=== PATIENT | female | born 1955 | race Caucasian/White ===

== ENCOUNTER → 2016-09-06 | Outpatient (CLI) | payer BC ==
[~2016-09-06] MED LIST: ASPEC81 PO; ATOR-22 PO; BRL90 PO; DAPA1TAB5 PO; LIRA18IN SQ; LOSA100T65 PO; METO50TA17 PO; PREG1CAP70 PO; PROP80CA PO
--- NOTE | 2016-09-07 13:29 | MAMMOGRAPHY REPORT ---
BILATERAL DIGITAL SCREENING MAMMOGRAM TOMOSYNTHESIS WITH CAD: 09/06/2016 CLINICAL HISTORY: Routine screening examination. TECHNIQUE: Breast tomosynthesis in addition to standard 2D mammography was performed. Current study was also evaluated with a Computer Aided Detection (CAD) system. COMPARISON: Comparison is made to exams dated: 09/02/2015 mammogram, 08/21/2013 mammogram, 08/04/2012 mammogram, 07/30/2009 mammogram, 08/03/2010 mammogram, and 08/04/2011 mammogram - [facility]. BREAST COMPOSITION: The tissue of both breasts is extremely dense, which lowers the sensitivity of mammography. FINDINGS: The breast bregma pattern is similar to prior available mammograms. There are scattered s table benign-appearing round and punctate microcalcifications throughout each breast. No new suspic ious mass, architectural distortion or cluster of microcalcifications is seen. IMPRESSION: ACR BI-RADS CATEGORY 1: NEGATIVE There is no mammographic evidence of malignancy. A 1 year screening mammogram is recommended. The p atient will receive written notification of the results. Approximately 10% of breast cancers are not detected with mammography. A negative mammographic repor t should not delay biopsy if a clinically suggestive mass is present. Ciara Sewell M.D. ay/:09/06/2016 16:57:39 Food Stylist: Donna TREJO)(Wandy), [facility] letter sent: Normal 1/2 BI-RADS Code: ACR BI-RADS Category 1: Negative
== END | disposition home or self-care (01) ==
LOC: C.MAMM 14:16
PROVIDERS: ATTEND Obstetrics & Gynecology
DX: Z12.31 Encounter for screening mammogram for malignant neoplasm of breast (principal)

== ENCOUNTER → 2016-12-06 | Outpatient (CLI) | payer BC ==
[2016-12-06 17:23] LABS: MEAN CELL VOLUME 95.3 fL (80-100); MEAN CORPUSCULAR HEMOGLOBIN 30.7 pg (25-34); MEAN CORPUSCULAR HGB CONC 32.2 g/dl (32-36); MEAN PLATELET VOLUME 12.1 fL (7.4-10.4); PLATELET COUNT 219 K/uL (130-400); WHITE BLOOD COUNT 5.57 K/uL (4.8-10.8)
[2016-12-06 17:43] LABS: ALT/SGPT 45 U/L (12-78); AST/SGOT 37 U/L (15-37); BLOOD UREA NITROGEN 18 mg/dl (7-18); BUN/CREATININE RATIO 14.8 (10-20); CALCIUM 9.1 mg/dl (8.5-10.1); CARBON DIOXIDE 25 mmol/L (21-32); CHLORIDE 104 mmol/L (98-107); GLUCOSE 136 mg/dl (70-99); SODIUM 140 mmol/L (136-145)
[2016-12-06 17:46] LABS: ALB/GLOB RATIO 1.1 (0.9-2); ALKALINE PHOSPHATASE 68 U/L (45-117); CHOLESTEROL 184 mg/dl (0-200); CHOLESTEROL/HDL RATIO 4.2; HDL CHOLESTEROL 44 mg/dl; TRIGLYCERIDES 507 mg/dl (0-150)
[2016-12-06 18:17] LABS: BASO % 0.9 %; BASO ABS # 0.05 K/uL (0-0.2); COMPLETE YES; EOS % 1.6 %; IG% 0.2 %; LYMPH % 55.5 %; LYMPH ABS # 3.09 K/uL (1.2-3.4); MONO % 8.3 %; NEUT % 33.5 %
[2016-12-07 06:10] LABS: ESTIMATED AVERAGE GLUCOSE 151 mg/dl; HA1C FLAG Normal (Normal)
== END | disposition home or self-care (01) ==
LOC: C.LABBFT 12:08
PROVIDERS: ATTEND Internal Medicine
DX: I10 Essential (primary) hypertension (principal); E11.9 Type 2 diabetes mellitus without complications; E78.5 Hyperlipidemia, unspecified; D64.9 Anemia, unspecified

== ENCOUNTER → 2017-05-02 | Outpatient (CLI) | payer BC ==
--- NOTE | 2017-05-02 14:18 | DIAGNOSTIC IMAGING REPORT ---
(CHEST) THORAX WITHOUT CT DOSE: 220.13 mGycm HISTORY: Lung nodules R07.89, Z12.2 TECHNIQUE: Multiaxial CT images of the chest were performed without contrast. A dose lowering technique was utilized adhering to the principles of ALARA. COMPARISON: 06/01/2016 FINDINGS: The nodularity right pulmonary apex and right upper lung has resolved. This presumably were postinflammatory. At this time lungs are considered clear. No focal infiltrate. No new or interval finding is not noted. Lung bases are considered clear. Minimal dependent basilar atelectasis. No significant mediastinal or hilar adenopathy. IMPRESSION: 1. Improved exam. 2. Pulmonary nodularity appears described has resolved. 3. the study at this time is considered negative. No additional follow-up is required. The above report was generated using voice recognition software. It may contain grammatical, syntax or spelling errors. Electronically signed by: Yoni Jj M.D. 05/02/2017 2:17 PM Dictated Date/Time: 05/02/2017 2:13 PM
== END | disposition home or self-care (01) ==
LOC: C.CTS 13:50
PROVIDERS: ATTEND Internal Medicine
DX: Z12.2 Encounter for screening for malignant neoplasm of respiratory organs (principal); R07.89 Other chest pain

== ENCOUNTER → 2017-07-13 | Outpatient (CLI) | payer BC ==
[2017-07-13 09:43] LABS: ESTIMATED AVERAGE GLUCOSE 169 mg/dl; HA1C FLAG Normal (Normal)
[2017-07-13 10:18] LABS: CHOLESTEROL/HDL RATIO 4.4; THYROID STIMULATING HORMONE 2.53 uIu/ml (0.300-4.500)
[2017-07-13 10:40] LABS: RATIO 6.6 mcg/mg (0-30.0)
== END | disposition home or self-care (01) ==
LOC: C.LAB1850 07:44
PROVIDERS: ATTEND Physician Assistant Medical
DX: E11.9 Type 2 diabetes mellitus without complications (principal); E78.5 Hyperlipidemia, unspecified; I25.10 Atherosclerotic heart disease of native coronary artery without angina pectoris

== ENCOUNTER → 2017-08-09 | Outpatient (CLI) | payer BC ==
[~2017-08-09] MED LIST changes: -ASPEC81 PO; +ASPI-320 PO; +ATOR-26 PO; +METO50TA8 PO; +MULT-506 PO
--- NOTE | 2017-08-09 14:26 | DIAGNOSTIC IMAGING REPORT ---
THORACIC SPINE 3 VIEWS ROUTINE CLINICAL HISTORY: M54.9 Back [id number] COMPARISON STUDY: No previous studies for comparison. FINDINGS: There is a minor spinal curvature. There are multilevel degenerative changes with anterior posterior osteophytic spurring. No acute fractures or traumatic subluxations are visualized. IMPRESSION: 1. No acute fractures or traumatic subluxations 2. No destructive lesions are visualized on conventional radiographic imaging 3. Mild to moderate multilevel degenerative change Electronically signed by: Cl Flores M.D. 08/09/2017 2:25 PM Dictated Date/Time: 08/09/2017 2:24 PM
== END | disposition home or self-care (01) ==
LOC: C.RAD1850 14:13
PROVIDERS: ATTEND Internal Medicine
DX: M54.9 Dorsalgia, unspecified (principal)

== ENCOUNTER → 2017-08-16 | Outpatient (CLI) | payer BC ==
[~2017-08-16] MED LIST changes: +ASPEC81 PO; -ASPI-320 PO; -ATOR-26 PO; -METO50TA8 PO; -MULT-506 PO
[2017-08-16 12:55] LABS: BLOOD UREA NITROGEN 22 mg/dl (7-18); CREATININE 1.09 mg/dl (0.60-1.20)
== END | disposition home or self-care (01) ==
LOC: C.LABBFT 09:10
PROVIDERS: ATTEND Internal Medicine
DX: E11.9 Type 2 diabetes mellitus without complications (principal); M54.9 Dorsalgia, unspecified

== ENCOUNTER → 2017-08-18 | Outpatient (CLI) | payer BC ==
[~2017-08-18] MED LIST changes: +GADAVIST IV PRN
--- NOTE | 2017-08-18 10:01 | DIAGNOSTIC IMAGING REPORT ---
THORACIC SPINE MRI WITH AND WITHOUT CONTRAST HISTORY: M54.9 Back painM19.90 DJD (degenerative joint disease)[id number] TECHNIQUE: Multiplanar multisequence MRI of the thoracic spine was performed both before and after the intravenous administration of contrast. COMPARISON: Thoracic spine radiograph 08/09/2017. FINDINGS: No fractures or subluxation within the thoracic spine. Normal signal intensity seen throughout the visualized osseous structures. The thoracic spinal cord demonstrate a normal signal intensity. No epidural masses or fluid collections. Mild flattening/thinning of the thoracic spinal cord from the T5-T6 level. This is of doubtful clinical significance. Tiny broad-based posterior disc bulge at T8-T9. No significant central canal narrowing. No neural foraminal narrowing. At the T11-T12 level there is a focal osteophyte at the right facet which abuts the spinal cord. However, there is no significant cord deformity. Paraspinal soft tissues are unremarkable. Mild disc space narrowing throughout the majority of the thoracic spine. IMPRESSION: 1. No fractures or subluxation within the thoracic spine. 2. Mild disc space narrowing throughout the majority of the thoracic spine. However, no significant central canal or neural foraminal narrowing. 3. The thoracic spinal cord demonstrates a normal signal intensity. 4. Small osteophyte protruding from the right T11-12 facet into the central canal which abuts but does not deform the distal thoracic spinal cord. Electronically signed by: Solomon Luna M.D. 08/18/2017 10:00 AM Dictated Date/Time: 08/18/2017 9:49 AM
== END | disposition home or self-care (01) ==
LOC: C.MRI 08:38
PROVIDERS: ATTEND Internal Medicine
DX: M25.78 Osteophyte, vertebrae (principal); M19.90 Unspecified osteoarthritis, unspecified site; M54.9 Dorsalgia, unspecified

== ENCOUNTER → 2017-09-08 | Outpatient (CLI) | payer BC ==
[~2017-09-08] MED LIST changes: -GADAVIST IV PRN
--- NOTE | 2017-09-12 07:38 | MAMMOGRAPHY REPORT ---
BILATERAL DIGITAL SCREENING MAMMOGRAM TOMOSYNTHESIS WITH CAD: 09/08/2017 CLINICAL HISTORY: Routine screening. Patient has no complaints. TECHNIQUE: Breast tomosynthesis in addition to standard 2D mammography was performed. Current study was also evaluated with a Computer Aided Detection (CAD) system. COMPARISON: Comparison is made to exams dated: 09/06/2016 mammogram, 09/02/2015 mammogram, 08/28/2014 m ammogram, 08/21/2013 mammogram, 08/04/2012 mammogram, and 08/04/2011 mammogram - [facility]. BREAST COMPOSITION: The tissue of both breasts is extremely dense, which lowers the sensitivity of m ammography. FINDINGS: There is a possible small cluster of calcifications within the left superior breast at jessica roximately 11:30 to 12:00, for which spot magnification views are recommended for further evaluation. Additionally, there is possible architectural distortion within the left medial posterior breast se en on the cc view only, which may represent the patient's normal parenchymal pattern, however, spot c ompression tomosynthesis views and possible breast ultrasound are recommended for further evaluation. The remainder of both breasts are stable compared to prior exams, without suspicious masses, calcific ations, or areas of architectural distortion noted. Other scattered bilateral benign-appearing calci fications are not significantly changed. Bilateral asymmetries are stable. IMPRESSION: ACR BI-RADS CATEGORY 0: INCOMPLETE EVALUATION: NEED ADDITIONAL IMAGING EVALUATION Left breast calcifications and questionable architectural distortion, for which additional imaging ev aluation is recommended. The patient will be called to schedule an appointment. Approximately 10% of breast cancers are not detected with mammography. A negative mammographic report should not delay biopsy if a clinically suggestive mass is present. Barbi El M.D. /:09/08/2017 16:08:25 Envelope Press Operator: Imani Wagoner, [facility] letter sent: Addl Imaging 0 BI-RADS Code: ACR BI-RADS Category 0: Incomplete Evaluation: Need Additional Imaging Evaluation
== END | disposition home or self-care (01) ==
LOC: C.MAMM 14:49
PROVIDERS: ATTEND Obstetrics & Gynecology
DX: Z12.31 Encounter for screening mammogram for malignant neoplasm of breast (principal); R92.1 Mammographic calcification found on diagnostic imaging of breast

== ENCOUNTER → 2017-09-20 | Outpatient (CLI) | payer BC ==
--- NOTE | 2017-09-21 15:25 | MAMMOGRAPHY REPORT ---
UNILATERAL LEFT DIGITAL DIAGNOSTIC MAMMOGRAM TOMOSYNTHESIS AND TARGETED LEFT ULTRASOUND: 09/20/2017 CLINICAL HISTORY: 62-year-old woman called back from screening mammography for a possible area of arc hitectural distortion in the medial posterior left breast, and a possible new grouping of microcalcif ications in the left breast. Family history of breast cancer = mother. TECHNIQUE: Spot magnification left CC, ML; spot compression tomosynthesis left CC and MLO views were obtained. COMPARISON: Comparison is made to exams dated: 09/08/2017 mammogram, 09/06/2016 mammogram, 09/02/2015 ma mmogram, 08/28/2014 mammogram, 08/21/2013 mammogram, and 08/04/2012 mammogram - [facility] enter. BREAST COMPOSITION: The tissue of the left breast is heterogeneously dense, which may obscure small masses. FINDINGS: The spot magnification views of the left breast demonstrate a small, 3 mm cluster of amorp hous microcalcifications in the upper inner middle one third of the left breast, new comparing to [place] or available mammograms. No obvious associated architectural distortion or mass. In the interval de velopment these by calcifications are indeterminate, warranting further evaluation with a stereotacti c guided biopsy. The spot compression tomosynthesis views of the medial left breast demonstrate effacement of the ques tionable area of architectural distortion in the medial posterior breast, near the fatglandular inte rface. The glandular pattern on the spot compression CC view appears very similar to prior mammogram s dating back to at least 2008, likely representing the patient's baseline. No persistent architectu ral distortion is seen in the posterior breast on the spot compression MLO tomosynthesis images. Fur ther evaluation with ultrasound was performed. Targeted ultrasound was performed in the medial left breast with particular attention to the o'clock, 9:00, 10:00 and 11:00 axes. Sonographic normal tissue is seen without a suspicious solid or cystic mass or architectural distortion appreciated in real-time scanning. The questionable area of distort ion most likely represented normal overlapping fibrolinear markings and no further workup is needed a t this time. IMPRESSION: ACR BI-RADS CATEGORY 4: SUSPICIOUS, TARGETED ULTRASOUND ACR BI-RADS CATEGORY 4: SUSPICIO US 1. Stereotactic guided biopsy is read amended for a small 3 mm cluster of amorphous microcalcificati ons in the upper inner quadrant of the left breast. 2. A questionable area of architectural distortion in the medial posterior left breast most likely r epresented normal overlapping fibrolinear markings as the distortion did not persist with supplementa l tomosynthesis images, and no suspicious sonographic correlate was identified. These results and recommendations were discussed with the patient at the time of the exam. She tenta tively scheduled the left breast stereotactic biopsy prior to leaving our department. Approximately 10% of breast cancers are not detected with mammography. A negative mammographic report should not delay biopsy if a clinically suggestive mass is present. Ciara Sewell M.D. ay/:09/20/2017 14:41:38 Economic Consultant: Imani Wagoner, [facility] letter sent: Abnormal 4/5 BI-RADS Code: ACR BI-RADS Category 4: Suspicious Ultrasound BI-RADS: ACR BI-RADS Category 4: Suspici ous
== END | disposition home or self-care (01) ==
LOC: C.MAMM 13:07
PROVIDERS: ATTEND Obstetrics & Gynecology
DX: R92.0 Mammographic microcalcification found on diagnostic imaging of breast (principal)

== ENCOUNTER → 2017-09-22 | Outpatient (CLI) | payer BC ==
--- NOTE | 2017-09-22 13:35 | Discharge Instructions ---
Discharge Instructions Procedure Procedure Date: Sep 22, 2017. Reason for visit: Left Calcs. Discharge Discharge Date: Sep 22, 2017. Discharge Diagnosis: status post breast biopsy Instructions Activity Recommendations: Additional Limitations (see below) Return to School/Work: no limitations Recommended Home Diet: No Limitations Provider Instructions: ACTIVITY RECOMMENDATIONS: * No lifting, pushing, pulling or exercising the affected side for three days. RETURN TO SCHOOL/WORK: * You may return to work/school after the procedure, but do not perform any strenuous activities for 24 to 48 hours. MEDICATIONS: * Tylenol (two 325 mg) every four to six hours if needed for mild pain (if not allergic to Tylenol). DIET: * Resume previous diet. SPECIAL CARE INSTRUCTIONS: * Keep biopsy site dry for 24 hours. May shower after 24 hours, but do not soak (bathe) incision. * May remove Tegaderm (plastic patch) tomorrow AFTER showering. * Leave the steri-strips on for one week. Allow the steri-strips to fall off by themselves. If not off after one week, you may remove them. You may place a Bandaid crosswise over the strips, if desired. * Apply ice 10 minutes on and 10 minutes off as needed. * Wear a bra at bedtime to sleep more comfortably for 2-3 days. * Your referring physician should have the results after approximately 5 to 7 business days. * Call for unusual bleeding, fever, drainage, etc or if you have any questions call during normal business hours or after hours call Dr El, [phone]. FOLLOW UP VISIT: Follow-up with Referring Physician as scheduled. Allergies Coded Allergies: No Known Allergies (Unverified , 06/01/16) Leticia Pabon Recommendations: Call your doctor if: * Temperature above 101 degrees * Pain not relieved by pain medicine ordered * There is increased drainage or redness from any incision * You have any unanswered questions or concerns. Your Doctors Instructions noted above were prepared by provider Barbi El. Patient Signature Section: Patient Instructions Signature Page Hilda Ospina Patient (or Guardian) Signature/Date: I have read and understand the instructions given to me by my caregivers. Caregiver/RN/Doctor Signature/Date: The above-named patient and/or guardian has received patient instructions on this date. + Original Patient Signature Page (only) stays with chart. Please make copy for patient.
--- NOTE | 2017-09-22 15:09 | MAMMOGRAPHY REPORT ---
UNILATERAL LEFT DIGITAL DIAGNOSTIC MAMMOGRAM: 09/22/2017 CLINICAL HISTORY: Status post left breast stereotactic biopsy. TECHNIQUE: Postprocedural left CC and ML views were obtained. COMPARISON: Comparison is made to exams dated: 09/20/2017 ultrasound, 09/20/2017 mammogram, 09/08/2017 m ammogram, 09/06/2016 mammogram, 09/02/2015 mammogram, and 08/28/2014 mammogram - [facility] enter. BREAST COMPOSITION: The tissue of the left breast is heterogeneously dense, which may obscure small masses. FINDINGS: A new biopsy marker clip is seen at the site of the biopsied calcifications in the left up per inner quadrant. No significant postbiopsy hematoma is seen. IMPRESSION: POST PROCEDURE IMAGING FOR MARKER PLACEMENT New biopsy marker clip status post left breast stereotactic biopsy. Pathology results are pending. Approximately 10% of breast cancers are not detected with mammography. A negative mammographic report should not delay biopsy if a clinically suggestive mass is present. Barbi lE M.D. ah/:09/22/2017 14:21:22 Gusset Edger: Imani ISRAEL(R)(M), [facility] BI-RADS Code: Post Procedure Imaging For Marker Placement
--- NOTE | 2017-09-22 15:09 | MAMMOGRAPHY REPORT ---
STEREOTACTIC GUIDED BIOPSY LEFT BREAST: 09/22/2017 CLINICAL HISTORY: Indeterminate calcifications in the left upper inner quadrant. PATIENT CONSENT: The procedure, risks, benefits, and alternatives of stereotactic biopsy with clip pl acement were discussed with the patient, and verbal and written consent was obtained. A timeout was performed immediately prior to the procedure. PROCEDURE DESCRIPTION: With stereotactic guidance, aseptic technique, and lidocaine as a local anesth etic (1% lidocaine to anesthetize the skin and 1% lidocaine with epinephrine to anesthetize the deepe r tissues), the calcifications of concern in the left upper inner quadrant were sampled multiple time s with a 9-gauge vacuum-assisted biopsy needle ([employer]). The path of approach was medial. The specimen radiograph demonstrates calcifications to be present in the samples. A metallic marker clip was placed at the biopsy site. This was confirmed on postprocedure mammograms. Direct pressure was applied at the biopsy site and hemostasis was readily achieved. The patient tolerated the procedure without complication. She was given wound care instructions. COMPARISON: Comparison is made to exams dated: 09/20/2017 ultrasound, 09/20/2017 mammogram, 09/08/2017 m ammogram, 09/06/2016 mammogram, 09/02/2015 mammogram, and 08/28/2014 mammogram - [facility] enter. IMPRESSION: STEREOTACTIC GUIDED BIOPSY Stereotactic biopsy of indeterminate calcifications in the left upper inner quadrant, with clip place ment. The patient will receive pathology results from her referring provider. Barbi El M.D. /:09/22/2017 14:20:10 Art Instructor: Katie ISRAEL(R)(Wandy), [facility]
== END | disposition home or self-care (01) ==
LOC: C.MAMM 12:59
PROVIDERS: ATTEND Obstetrics & Gynecology
DX: R92.1 Mammographic calcification found on diagnostic imaging of breast (principal); N60.12 Diffuse cystic mastopathy of left breast

== ENCOUNTER → 2017-11-25 | Outpatient (CLI) | payer BC ==
[~2017-11-25] MED LIST changes: -ASPEC81 PO; +ASPI-320 PO; -ATOR-22 PO; +ATOR-26 PO; -METO50TA17 PO; +METO50TA8 PO; +MULT-506 PO
[2017-11-25 09:55] LABS: ALBUMIN 4.1 gm/dl (3.4-5.0); ALT/SGPT 51 U/L (12-78); BLOOD UREA NITROGEN 20 mg/dl (7-18); CALCIUM 9.9 mg/dl (8.5-10.1); CARBON DIOXIDE 28 mmol/L (21-32); GLUCOSE 169 mg/dl (70-99); POTASSIUM 4.2 mmol/L (3.5-5.1); SODIUM 135 mmol/L (136-145)
[2017-11-25 10:00] LABS: ALKALINE PHOSPHATASE 89 U/L (45-117); AST/SGOT 31 U/L (15-37); CHOLESTEROL 193 mg/dl (0-200); HEMOGLOBIN A1C 7.3 % (4.5-5.6); TOTAL PROTEIN 8.3 gm/dl (6.4-8.2)
== END | disposition home or self-care (01) ==
LOC: C.LAB1850 06:50
PROVIDERS: ATTEND Internal Medicine
DX: I25.10 Atherosclerotic heart disease of native coronary artery without angina pectoris (principal); E78.5 Hyperlipidemia, unspecified; E11.42 Type 2 diabetes mellitus with diabetic polyneuropathy

== ENCOUNTER → 2017-11-28 | Outpatient (CLI) | payer BC | LOC: C.LABBFT 14:56 | PROVIDERS: ATTEND Internal Medicine | DX: Z11.59 Encounter for screening for other viral diseases (principal) ==

== ENCOUNTER → 2017-12-21 | Outpatient (CLI) | payer BC ==
--- NOTE | 2017-12-21 20:47 | MYOCARDIAL PERFUSION SCAN ---
One-day nuclear medicine Technetium-99M Cardiolite myocardial perfusion scan. INDICATIONS: History of coronary artery disease and anterior STEMI. Recent onset of atypical chest pain with diaphoresis. Baseline EKG: Normal sinus rhythm at a ventricular rate of 77 with septal infarct and no significant ST abnormalities. STRESS EKG: Her heart rate christian from 77 to 133 representing 83% of maximum predicted heart rate. The patient exercised for 9 minutes and 22 seconds achieving more than 11 METs. Blood pressure christian from 143/83 to 164/74. With exercise, there were borderline ST depressions in the inferior leads, near 1 mm upsloping resolving quickly with recovery. TECHNIQUE: For the stress portion of the study, 32.4 mCi of Technetium-99m Cardiolite IV was injected at 9:40 a.m. on 12/21/2017. Fifteen minutes following the injection, imaging of the heart was performed in multiple projections. For the rest portion of the study, 10.3 mCi of Technetium-99m Cardiolite was injected IV at 7:30 a.m. One hour following the injection, imaging of the heart was performed in the same projections. FINDINGS: Rotating raw images were reviewed in detail. There was notable vertical motion in the stress images greater than rest. There was uniform breast attenuation shadow noted on both the stress and rest. There was minimal liver uptake impacting the inferior imaging border of the heart. There was no significant extracardiac pathologic uptake. The short axis, vertical long axis, and horizontal long axis images were reviewed in detail. There was a moderate caliber moderate in size fixed perfusion defect involving the mid anterior septum, apical anterior, septal wall, and true apex. Summed rest score of 8. There was no significant reversibility/ischemia noted. Normal LV size was noted with a calculated end diastolic volume of 46 mL. There was normal LV function with an EF of 65% and corresponding apical/apical septal hypokinesis. IMPRESSION: 1. Negative myocardial perfusion study for exercise-induced ischemia at 83% MPHR. 2. Fixed moderate in size, moderate severity apical/apical septal infarct. 3. Above average functional capacity. Exercised 9 minutes 22 seconds achieving more than 11 METs without exertional chest pain. 4. Borderline exercise EKG with near [address] depressions in the inferior leads that resolved quickly with recovery. 5. Normal left ventricular size and function, ejection fraction of 65% with apical hypokinesis. 6. Compared to prior study in 06/2016, the patients exercise capacity has increased, otherwise no significant changes. MTDD
== END | disposition home or self-care (01) ==
LOC: C.NUCL 06:56
PROVIDERS: ATTEND Internal Medicine Interventional Cardiology
DX: I25.10 Atherosclerotic heart disease of native coronary artery without angina pectoris (principal); R06.09 Other forms of dyspnea

== ENCOUNTER → 2018-03-28 | Outpatient (CLI) | payer BC ==
[2018-03-28 12:43] LABS: BASO % 0.6 %; BASO ABS # 0.03 K/uL (0-0.2); EOS % 3.9 %; HEMATOCRIT 40.8 % (37-47); HEMOGLOBIN 13.3 g/dL (12.0-16.0); IG# 0.01 K/uL (0.00-0.02); LYMPH % 49.8 %; LYMPH ABS # 2.55 K/uL (1.2-3.4); MEAN CELL VOLUME 96.9 fL (80-100); MEAN CORPUSCULAR HEMOGLOBIN 31.6 pg (25-34); MEAN CORPUSCULAR HGB CONC 32.6 g/dl (32-36); MEAN PLATELET VOLUME 11.8 fL (7.4-10.4); MONO % 9.4 %; MONO ABS # 0.48 K/uL (0.11-0.59); NEUT % 36.1 %; NEUT ABS # 1.85 K/uL (1.4-6.5); PLATELET COUNT 206 K/uL (130-400); RED CELL DISTRIBUTION WIDTH CV 13.2 % (11.5-14.5); RED CELL DISTRIBUTION WIDTH SD 45.8 fL (36.4-46.3); WHITE BLOOD COUNT 5.12 K/uL (4.8-10.8)
[2018-03-28 13:21] LABS: HEMOGLOBIN A1C 7.2 % (4.5-5.6)
[2018-03-28 14:10] LABS: ALKALINE PHOSPHATASE 73 U/L (45-117); ALT/SGPT 37 U/L (12-78); AST/SGOT 32 U/L (15-37); BLOOD UREA NITROGEN 23 mg/dl (7-18); CALCIUM 9.5 mg/dl (8.5-10.1); CARBON DIOXIDE 26 mmol/L (21-32); CREATININE 1.23 mg/dl (0.60-1.20); GLUCOSE 137 mg/dl (70-99); POTASSIUM 4.3 mmol/L (3.5-5.1); SODIUM 138 mmol/L (136-145)
== END | disposition home or self-care (01) ==
LOC: C.LABBFT 09:35
PROVIDERS: ATTEND Internal Medicine
DX: E11.9 Type 2 diabetes mellitus without complications (principal); R77.1 Abnormality of globulin

== ENCOUNTER 2019-05-29 12:35 | Inpatient (IN) ==
[2019-05-29] MEDS ORDERED: ONDANSETRON INJ 2 MG/ML 2 ML VIAL IV STA (13:00)
[2019-05-29] MEDS ORDERED: MoRPHine SULFATE 4 MG/ML 1 ML CARP\\VIAL IV STA ×2 (13:00→13:55)
[2019-05-29] MEDS ORDERED: NITROGLYCERIN 2% OINTMENT 30GM TUBE EXT STA (13:01)
[2019-05-29 13:19] LABS: Basophils # (auto) 0.02 K/uL (0-0.2); Basophils % (auto) 0.3 %; Eosinophils # (auto) 0.14 K/uL (0-0.5); Hematocrit (blood only) 33.9 % (37-47); Immature Granulocytes # (auto) 0.01 K/uL (0.00-0.02); Immature Granulocytes % (auto) 0.1 %; Lymphocytes # (auto) 2.48 K/uL (1.2-3.4); Lymphocytes % (auto) 36.2 %; Mean Corpuscular Hemoglobin 31.8 pg (25-34); Mean Corpuscular Hgb Conc 32.4 g/dL (32-36); Mean Platelet Volume 11.5 fL (7.4-10.4); Monocytes # (auto) 0.55 K/uL (0.11-0.59); Neutrophils # (auto) 3.66 K/uL (1.4-6.5); Neutrophils % (auto) 53.4 %; Platelet Count 180 K/uL (130-400); RDW Coefficient of Variation 13.7 % (11.5-14.5); RDW Standard Deviation 48.1 fL (36.4-46.3); Red Blood Count 3.46 M/uL (4.2-5.4); White Blood Count 6.86 K/uL (4.8-10.8)
--- NOTE | 2019-05-29 13:27 | XRay Report ---
XR chest 1V portable CLINICAL HISTORY: Chest Pain pain COMPARISON STUDY: 09/01/2018 FINDINGS: The bones soft tissues and hemidiaphragms are normal. The cardiomediastinal silhouette is n ormal. The lungs are clear. The pulmonary vasculature is normal. IMPRESSION: Negative chest. The above report was generated using voice recognition software. It may contain grammatical, syntax or spelling errors. Electronically signed by: Yoni Jj M.D. 05/29/2019 1:26 PM
[2019-05-29 13:28] LABS: Alanine Aminotransferase 35 U/L (12-78); Aspartate Aminotransferase 20 U/L (15-37); BUN Creatinine Ratio 23.2 (10-20); Blood Urea Nitrogen 31 mg/dl (7-18); Carbon Dioxide 24 mmol/L (21-32); Chloride 103 mmol/L (98-107); Est GFR (African American) 48.7; Est GFR (Non-African American) 42.1; Glucose 156 mg/dl (70-99); Lipase 298 U/L (73-393); Potassium 4.4 mmol/L (3.5-5.1); Sodium 135 mmol/L (136-145)
[2019-05-29 13:33] LABS: Albumin Globulin Ratio 1.1 (0.9-2); Alkaline Phosphatase 90 U/L (45-117); Bilirubin,Total 0.5 mg/dl (0.2-1); Globulin 3.8 gm/dl (2.5-4.0); Total Protein 7.8 gm/dl (6.4-8.2); Troponin I < 0.015 ng/ml (0-0.045)
[2019-05-29 13:36] LABS: D Dimer 380 ug/L FEU (0-500); Partial Thromboplastin Ratio 0.9; Partial Thromboplastin Time 23.6 Seconds (21.0-31.0); Prothrombin Time 10.4 Seconds (9.0-12.0)
--- NOTE | 2019-05-29 14:32 | Emergency Department Note ---
Entered by Haroon Mejia acting as a scribe for Davie Dillon MD History of Present Illness General Chief complaint: Cardiac Assessment Stated complaint: chest pain Time Seen by Provider: 05/29/19 12:57 Source: patient History of Present Illness Onset (ago): hour(s) 2 Location: chest Radiation: extremity (left arm ) Pain Consistency: + other (episode) Maximum Pain Intensity: 7 Current Pain Intensity: 8 Quality: + other (dull ache chest discomfort ) Associated symptoms: + nausea/vomiting (+nausea;-vomiting); no diaphoresis and no shortness of breath Treatments prior to arrival: other (3 NG and 4 baby aspirins ) The patient is a 64 year old female, with past medical history of CAD and [place], who presents to the Emergency Room with complaints of an episode of chest pain that began approximately two hours ago at 1100. The patient states the pain worsened at approximately 1145. The patient describes the pain as a dull ache, and she states the dull ache has radiated down her left arm to her left elbow. The patient notes her pain is an 8/10 currently. 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 The patient states symptoms improved briefly but then it worsened again. The patient notes she also received a spray of NG en route in the ambulance. The patient notes she also has taken 4 baby aspirin for symptoms. The patient states she is nauseous, but she denies shortness of breath and being sweaty. The patient notes that nothing makes the chest pain worse, including breathing or movement. The patient also states it does not hurt to move her left arm in any direction. The patient states she can not recall if her present symptoms are similar to her heart attack 3 years ago, but she states she was nauseous during that episode. The patient states she is currently not taking any blood thinners other than aspirin. The patient also notes she had one cardiac stent placed in May [address] Ellis. The patient denies history of blood clots in lungs or leg. Home Medications Home Medications Medication Instructions Recorded Confirmed Type dapagliflozin-metformin 2 tabs PO QAM 09/01/18 05/29/19 History liraglutide 1.8 mg SUBCUT QAM 09/01/18 05/29/19 History metoprolol succinate 50 mg PO QPM 09/01/18 05/29/19 History venlafaxine 75 mg PO QAM 09/01/18 05/29/19 History omeprazole 20 mg PO QAM 09/05/18 05/29/19 History flash glucose sensor kit #2 ea 02/15/19 05/29/19 Rx estradiol 0.01% (0.1 mg/gram) See Rx Instructions PV .COMPLEX 03/06/19 05/29/19 History vaginal cream pregabalin 150 mg capsule 150 mg PO BID #180 cap 03/26/19 05/29/19 Rx propranolol ER 80 mg capsule,24 80 mg PO QAM #90 cap 05/03/19 05/29/19 Rx hr,extended release esomeprazole magnesium 40 mg PO HS 05/07/19 05/29/19 History losartan 100 mg PO QAM 05/07/19 05/29/19 History rosuvastatin 40 mg PO QPM 05/07/19 05/29/19 History tramadol 50 mg PO Q6H PRN #20 tab 05/09/19 05/29/19 Rx Allergies Allergy/AdvReac Type Severity Reaction Status Date / Time No Known Allergies Allergy Verified 05/29/19 13:58 Past Med/Surg History Medical History Presence of drug coated stent in LAD coronary artery (Acute) IMPLANTED 3 YEARS AGO AT [facility] (DR. ELLIS) Postmenopausal atrophic vaginitis (Acute) Gastritis (Acute) Fibrocystic breast disease (Acute) Esophageal stricture (Acute) Diabetic peripheral neuropathy (Acute) Depression (Acute) DJD (degenerative joint disease) (Acute) CAD (coronary artery disease) (Acute) Anterior wall myocardial infarction (Acute) 3 YEARS AGO Hyperlipidemia (Chronic) Hypertension (Chronic) ACS (acute coronary syndrome) Chronic back pain follow with dr hernandez at pain management 2018 Diabetes mellitus, type 2 Hiatal hernia History of solitary pulmonary nodule NO LONGER SHOWS UP ON XRAY Migraine Schatzki's ring HAS EGD WITH DILATION Surgical History H/O: section (Resolved) x2 History of bilateral tubal ligation History of colonoscopy History of esophagogastroduodenoscopy (EGD) WITH DILATION History of laparoscopy fertility reason History of open reduction and internal fixation (ORIF) procedure right ankle--hardware in place History of tonsillectomy and adenoidectomy Family History Grandmother (Paternal) Family history of diabetes mellitus Father Myocardial infarction Social History Preferred Language: [place] Communication Ability: Effective Gun Stocker Required: No Beliefs That Will Affect Care: None marital status: Current Living Situation: Spouse and Family current occupational status: employed Feels Safe at Home: Yes Smoking Status: Never smoker Second Hand Exposure: No ; Hx Alcohol Use: Yes Alcohol type: beer Hx Substance Use: No Review of Systems See HPI for pertinent positives & negatives. and A total of 10 systems reviewed and were otherwise negative Physical Exam Vital Signs Vital Signs - 24 hr 05/29/19 12:41 05/29/19 12:46 05/29/19 12:48 Temperature Source Oral Sepsis Recent Fever Within 48 Hours No Sepsis Action Taken by Nursing No Action Required Pulse Rate 84 80 77 Pulse Rate [Right Finger] Pulse Rate from SpO2 Sensor 83 78 Respiratory Rate 20 20 15 Respiratory Effort / Characteristics Non-Labored Respiratory Depth Normal Blood Pressure 145/73 H 145/73 H Blood Pressure [Right Arm] Blood Pressure Mean 97 97 Blood Pressure Mean [Right Arm] Pulse Oximetry 94 97 97 Oxygen Delivery Method Room Air 05/29/19 12:50 05/29/19 12:54 05/29/19 13:00 Temperature Source Sepsis Recent Fever Within 48 Hours Sepsis Action Taken by Nursing Pulse Rate 82 80 83 Pulse Rate [Right Finger] Pulse Rate from SpO2 Sensor 82 82 Respiratory Rate 15 14 Respiratory Effort / Characteristics Respiratory Depth Blood Pressure 145/80 H Blood Pressure [Right Arm] Blood Pressure Mean 101 Blood Pressure Mean [Right Arm] Pulse Oximetry 97 97 99 Oxygen Delivery Method Room Air 05/29/19 13:09 05/29/19 13:11 05/29/19 13:20 Temperature Source Sepsis Recent Fever Within 48 Hours Sepsis Action Taken by Nursing Pulse Rate 81 80 90 Pulse Rate [Right Finger] 78 Pulse Rate from SpO2 Sensor 82 81 89 Respiratory Rate 21 20 16 Respiratory Effort / Characteristics Non-Labored Respiratory Depth Normal Blood Pressure 118/77 Blood Pressure [Right Arm] 118/77 Blood Pressure Mean 90 Blood Pressure Mean [Right Arm] 90 Pulse Oximetry 94 96 98 Oxygen Delivery Method Room Air 05/29/19 13:24 05/29/19 13:30 05/29/19 13:39 Temperature Source Sepsis Recent Fever Within 48 Hours Sepsis Action Taken by Nursing Pulse Rate 85 84 83 Pulse Rate [Right Finger] 86 52 L Pulse Rate from SpO2 Sensor 84 85 81 Respiratory Rate 22 14 21 Respiratory Effort / Characteristics Non-Labored Non-Labored Respiratory Depth Normal Normal Blood Pressure 118/80 129/77 104/71 Blood Pressure [Right Arm] 118/80 104/71 Blood Pressure Mean 92 94 82 Blood Pressure Mean [Right Arm] 92 82 Pulse Oximetry 95 97 94 Oxygen Delivery Method Room Air Room Air 05/29/19 13:41 05/29/19 13:50 05/29/19 14:00 Temperature Source Sepsis Recent Fever Within 48 Hours Sepsis Action Taken by Nursing Pulse Rate 79 87 80 Pulse Rate [Right Finger] Pulse Rate from SpO2 Sensor 80 85 80 Respiratory Rate 16 18 17 Respiratory Effort / Characteristics Respiratory Depth Blood Pressure 115/70 Blood Pressure [Right Arm] Blood Pressure Mean 85 Blood Pressure Mean [Right Arm] Pulse Oximetry 98 92 96 Oxygen Delivery Method 05/29/19 14:10 Temperature Source Sepsis Recent Fever Within 48 Hours Sepsis Action Taken by Nursing Pulse Rate 81 Pulse Rate [Right Finger] Pulse Rate from SpO2 Sensor 82 Respiratory Rate 20 Respiratory Effort / Characteristics Respiratory Depth Blood Pressure Blood Pressure [Right Arm] Blood Pressure Mean Blood Pressure Mean [Right Arm] Pulse Oximetry 96 Oxygen Delivery Method GENERAL: Patient is in mild distress from pain. HEENT: No acute trauma, normocephalic atraumatic, mucous membranes moist, no nasal congestion, no scleral icterus. NECK: No stridor, no adenopathy, no meningismus, trachea is midline. LUNGS: Clear to auscultation bilaterally, no wheeze, no rhonchi, breath sounds equal. HEART: Without murmurs gallops or rubs, regular rate and rhythm. CHEST: Non-tender chest wall. ABDOMEN: Soft, nontender, bowel sounds positive, no hernias, no peritonitis. EXTREMITIES: No cyanosis or edema, full range of motion of all the joints without pain or difficulty, no signs for acute trauma. NEUROLOGIC: Oriented x 3, no acute motor or sensory deficits, no focal weakness. SKIN: No rash, no jaundice, no diaphoresis. Course 1255: Past medical records reviewed. The patient was evaluated in room B5. A complete history and physical exam was performed. 1343: I discussed the patient's case with Dr. Ellis-Cardiology. Dr. Ellis recommends bringing the patient into the hospital for unstable angina. 1400: I reviewed the patient's case with Dr. Roy-Hospitalist [facility]. Dr. Clinton keys will evaluate the patient for further management. Consultations Consultation #1: I discussed the patient's case with Dr. Ellis-Cardiology. Dr. Ellis recommends bringing the patient into the hospital for unstable angina. Time: 13:43 Consultation #2: I reviewed the patient's case with Dr. Roy-Hospitalist [facility]. Dr. Roy will evaluate the patient for further management. Time: 14:00 Administered Medications Fentanyl Citrate (Fentanyl Citrate) 25 mcg IV Q3H PRN PRN Reason: Pain Stop: 06/12/19 18:19 Last Admin: 05/29/19 18:50 Dose: 25 mcg Documented by: [id number] Heparin Sodium/Dextrose (Heparin Sodium/Dextrose) 25,000 units in 500 mls @ 22 mls/hr IV .[id number] [facility]; Protocol Stop: 06/28/19 16:29 Last Titration: 05/29/19 19:13 Dose: 1,100 units/hr, 22 mls/hr Documented by: [id number] Cosigned by: [id number] Admin: 05/29/19 17:22 Dose: 1,100 units/hr, 22 mls/hr Documented by: [id number] Cosigned by: [id number] Discontinued Medications Diphenhydramine HCl (Benadryl) 12.5 mg IV NOW STA Stop: 05/29/19 15:22 Last Admin: 05/29/19 15:22 Dose: 12.5 mg Documented by: [id number] Heparin Sodium/Dextrose () 1 ea IV Q15M [facility]; Protocol Stop: 05/29/19 17:16 Last Admin: 05/29/19 17:46 Dose: Not Given Documented by: [id number] Admin: 05/29/19 17:46 Dose: Not Given Documented by: [id number] Admin: 05/29/19 17:44 Dose: 1 ea Documented by: [id number] Admin: 05/29/19 17:22 Dose: 1 ea Documented by: [id number] Morphine Sulfate (Morphine Sulfate) 4 mg IV NOW STA Stop: 05/29/19 13:01 Last Admin: 05/29/19 13:10 Dose: 4 mg Documented by: [id number] Morphine Sulfate (Morphine Sulfate) 4 mg IV NOW STA Stop: 05/29/19 13:56 Last Admin: 05/29/19 14:52 Dose: 4 mg Documented by: [id number] Nitroglycerin (Nitro-Bid 2%) 1 inch EXT NOW STA Stop: 05/29/19 13:02 Last Admin: 05/29/19 13:10 Dose: 1 inch Documented by: [id number] Ondansetron HCl (Zofran) 4 mg IV NOW STA Stop: 05/29/19 13:01 Last Admin: 05/29/19 13:10 Dose: 4 mg Documented by: [id number] Medical Decision Making Differential Diagnosis Differential diagnoses include angina, [place], aortic dissection, PE, musculoskeletal pain, anemia, electrolyte imbalance, pneumothorax, amongst others were considered. Medical Records Attestation: I reviewed the patient's medical records. Home Medications Current Medication List: was personally reviewed by me Laboratory Data Attestation: I reviewed the patient's lab results. Result diagrams: 05/29/19 12:54 05/29/19 12:54 Lab Results 05/29/19 05/29/19 05/29/19 Range/Units 12:54 12:54 12:54 WBC 6.86 (4.8-10.8) K/uL RBC 3.46 L (4.2-5.4) M/uL Hgb 11.0 L (12.0-16.0) g/dL Hct 33.9 L (37-47) % MCV 98.0 (80-100) fL MCH 31.8 (25-34) pg MCHC 32.4 (32-36) g/dL RDW Std Deviation 48.1 H (36.4-46.3) fL RDW Coeff of Gita 13.7 (11.5-14.5) % Plt Count 180 (130-400) K/uL MPV 11.5 H (7.4-10.4) fL Immature Gran % (Auto) 0.1 % Neut % (Auto) 53.4 % Lymph % (Auto) 36.2 % [place] % (Auto) 8.0 % Eos % (Auto) 2.0 % Baso % (Auto) 0.3 % Immature Gran # (Auto) 0.01 (0.00-0.02) K/uL Neut # (Auto) 3.66 (1.4-6.5) K/uL Lymph # (Auto) 2.48 (1.2-3.4) K/uL [place] # (Auto) 0.55 (0.11-0.59) K/uL Eos # (Auto) 0.14 (0-0.5) K/uL Baso # (Auto) 0.02 (0-0.2) K/uL PT 10.4 (9.0-12.0) Seconds INR 1.0 (0.9-1.1) APTT 23.6 (21.0-31.0) Seconds PTT Ratio 0.9 D-Dimer 380 (0-500) ug/L FEU Sodium 135 L (136-145) mmol/L Potassium 4.4 (3.5-5.1) mmol/L Chloride 103 (98-107) mmol/L Carbon Dioxide 24 (21-32) mmol/L Anion Gap 8.0 (3-11) BUN 31 H (7-18) mg/dl Creatinine 1.34 H (0.6-1.2) mg/dl Est Cr Clr Drug Dosing Not Reportable Est GFR ( Amer) 48.7 Est GFR (Non-Af Amer) 42.1 BUN/Creatinine Ratio 23.2 H (10-20) Glucose 156 H (70-99) mg/dl Calcium 9.0 (8.5-10.1) mg/dl Magnesium 2.0 (1.8-2.4) mg/dl Total Bilirubin 0.5 (0.2-1) mg/dl AST 20 (15-37) U/L ALT 35 (12-78) U/L Alkaline Phosphatase 90 (45-117) U/L Troponin I < 0.015 (0-0.045) ng/ml Total Protein 7.8 (6.4-8.2) gm/dl Albumin 4.0 (3.4-5.0) gm/dl Globulin 3.8 (2.5-4.0) gm/dl Albumin/Globulin Ratio 1.1 (0.9-2) Lipase 298 (73-393) U/L Imaging Data Radiologist's Impression: Radiology results as stated below per my review and the radiologist's interpretation: XR chest 1V portable CLINICAL HISTORY: Chest Pain pain COMPARISON STUDY: 09/01/2018 FINDINGS: The bones soft tissues and hemidiaphragms are normal. The cardiomediastinal silhouette is normal. The lungs are clear. The pulmonary vasculature is normal. IMPRESSION: Negative chest. The above report was generated using voice recognition software. It may contain grammatical, syntax or spelling errors. Electronically signed by: Yoni Jj M.D. 05/29/2019 1:26 PM ECG Data Attestation: I personally reviewed and interpreted this ECG as follows: Indication: chest pain Rate (beats per minute): 77 Rhythm: normal sinus Findings: + other (QTC 445); no PAC, no PVC, no ST elevation and no ectopy Additional Comments: REPEAT ECG: NSR, rate of 84. No ST elevation, no ectopy, QTC 446. Blood Pressure Blood Pressure Findings: Normal blood pressure MDM Narrative There is no leukocytosis. Patient was mildly anemic. No significant electrolyte abnormality or kidney failure. No liver enzyme elevation. No evidence for pancreatitis. EKG shows a sinus rhythm, no acute ischemia, second EKG showed the same findings. Initial troponin value returned normal. Chest film did not show pneumonia or mediastinal widening. There was no CHF. D-dimer testing was negative. With a negative d-dimer and my low suspicion for PE, I will stop the work-up for this diagnosis. Patient was given IV morphine for pain, a second dose of IV morphine was required. She was given Nitropaste 1 inch, she was given IV Zofran 4 mg. She had already received oral aspirin so no additional aspirin was given. 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 A hospital stay for presumed unstable angina was felt warranted. The patient does have known coronary disease. The patient was reassured by her testing and EKGs, she does require further testing and work-up though. A hospital stay is clearly warranted. I did speak with the case management team, the on-call hospitalist was consulted. Impression & Plan Chest pain, precordial, History of coronary artery disease Discharge Plan Visit Data *Final* Discharge Date/Time: 05/29/19 15:21 Chief Complaint: Cardiac Assessment Stated Complaint: chest pain ED Provider: Davie Dillon Discharge Problem: Chest pain, precordial, History of coronary artery disease Patient Disposition: Admitted As Inpatient Discharge Instructions Interventions: ED Discharge Assessment Last Done: 05/29/19 15:21 The anupamibe's documentation has been prepared under my direction and personally reviewed by me in its entirety. I confirm that the note above accurately reflects all work, treatment, procedures, and medical decision making performed by me.
[2019-05-29] MEDS ORDERED: DiphenhydrAMINE HCL 50 MG/ML VIAL ONE (15:12)
[2019-05-29] MEDS ORDERED: DiphenhydrAMINE HCL 50 MG/ML VIAL IV STA (15:21)
--- NOTE | 2019-05-29 15:37 | History & Physical Report ---
Date of Service May 29, 2019 Assessment & Plan (1) Chest pain, precordial: Concern for ACS given hx, started on heparin drip Trop neg x1, serials pending EKG neg x2 CXR neg for acute ECHO pending Follows with Dr. Ellis, c/s pending (2) DM type 2 (diabetes mellitus, type 2): SSI PRN A1c pending (3) Diabetic peripheral neuropathy: continue home meds (4) Hyperlipidemia: continue home meds (5) Hypertension: continue home meds (6) Hot flashes: Takes lyrica for this, denies hx of depression (7) DVT prophylaxis: Heparin drip History of Present Illness Primary Care Provider: Reinier Solis MD 64 y/o F c/o chest pain. Pt states she was at work today around 1145a and had sudden onset of L sided chest pain radiating into her L UE. She states it felt similar to the pain she had about 3 years ago when dx with CAD and had a stent placed. She came to the ED for evaluation. She states she was nauseated without emesis with this pain. She states that she worked a full day yesterday. She felt a bit fatigued and went to bed shortly after getting home. She slept all night without issue. Pt denies fever, SOB, abd pain, v/c/d, LE pain or swelling. Pt has been given nitro x3 and aspirin x4 with minimal relief of sx. She states chest pain is slightly improved, but still present and quite sharp. Pt has hx of hiatal hernia and Schatzi's ring. She states this does not feel similar to pain she has had with those issues as that is more sternal. ED physician spoke with pt's human resources trainee, Dr. Ellis, who states that this was the same presentation as pt had 3 years prior, including neg trop and EKG. He recommended to treat as unstable angina with heparin drip. Allergies Allergy/AdvReac Type Severity Reaction Status Date / Time No Known Allergies Allergy Verified 05/29/19 13:58 Home Medications Home Medications Medication Instructions Recorded Confirmed Type dapagliflozin-metformin 2 tabs PO QAM 09/01/18 05/29/19 History liraglutide 1.8 mg SUBCUT QAM 09/01/18 05/29/19 History metoprolol succinate 50 mg PO QPM 09/01/18 05/29/19 History venlafaxine 75 mg PO QAM 09/01/18 05/29/19 History omeprazole 20 mg PO QAM 09/05/18 05/29/19 History flash glucose sensor kit #2 ea 02/15/19 05/29/19 Rx estradiol 0.01% (0.1 mg/gram) See Rx Instructions PV .COMPLEX 03/06/19 05/29/19 History vaginal cream pregabalin 150 mg capsule 150 mg PO BID #180 cap 03/26/19 05/29/19 Rx propranolol ER 80 mg capsule,24 80 mg PO QAM #90 cap 05/03/19 05/29/19 Rx hr,extended release esomeprazole magnesium 40 mg PO HS 05/07/19 05/29/19 History losartan 100 mg PO QAM 05/07/19 05/29/19 History rosuvastatin 40 mg PO QPM 05/07/19 05/29/19 History tramadol 50 mg PO Q6H PRN #20 tab 05/09/19 05/29/19 Rx Past Med/Surg History Medical History Presence of drug coated stent in LAD coronary artery (Acute) IMPLANTED 3 YEARS AGO AT [facility] (DR. ELLIS) Postmenopausal atrophic vaginitis (Acute) Gastritis (Acute) Fibrocystic breast disease (Acute) Esophageal stricture (Acute) Diabetic peripheral neuropathy (Acute) Depression (Acute) DJD (degenerative joint disease) (Acute) CAD (coronary artery disease) (Acute) Anterior wall myocardial infarction (Acute) 3 YEARS AGO Hyperlipidemia (Chronic) Hypertension (Chronic) ACS (acute coronary syndrome) Chronic back pain follow with dr hernandez at pain management 2018 Diabetes mellitus, type 2 Hiatal hernia History of solitary pulmonary nodule NO LONGER SHOWS UP ON XRAY Migraine Schatzki's ring HAS EGD WITH DILATION Surgical History H/O: section (Resolved) x2 History of bilateral tubal ligation History of colonoscopy History of esophagogastroduodenoscopy (EGD) WITH DILATION History of laparoscopy fertility reason History of open reduction and internal fixation (ORIF) procedure right ankle--hardware in place History of tonsillectomy and adenoidectomy Family History Grandmother (Paternal) Family history of diabetes mellitus Father Myocardial infarction Social History Preferred Language: Wolof Communication Ability: Effective Business Objects Developer Required: No Beliefs That Will Affect Care: None marital status: Current Living Situation: Spouse current occupational status: employed Feels Safe at Home: Yes Smoking Status: Never smoker Second Hand Exposure: No ; Hx Alcohol Use: Yes (quit 5 yrs ago, but has been drinking on the weekends only lately) Hx Substance Use: No Review of Systems Review of Systems: Pertinent positives and negatives reviewed in HPI--all others negative Physical Exam Constitutional: WD/WN, vitals as above Eyes: normal visual valdivia by confrontation and + anicteric sclerae Neck: normal visual inspection and trachea midline Respiratory: normal respiratory effort, lungs clear to auscultation Cardiovascular: Rate/Rhythm: regular rate and regular rhythm Gastrointestinal (Abdomen): Inspection/Auscultation: abdomen not distended Percussion/Palpation: abdomen soft; abdomen nontender Musculoskeletal: Head/Neck/Chest: normocephalic and head atraumatic negative for edema, peripheral pulses intact Skin: no rashes, warm and dry Neurologic: awake; not confused Speech / Cognition: normal speech Psychiatric: A+Ox3, euthymic affect Results & Data Vital Signs (Past 12 Hours) Vital Signs Pulse Pulse Resp BP BP Pulse Ox 05/29/19 14:51 82 20 103/64 97 05/29/19 14:38 82 20 99/65 L 96 05/29/19 13:39 52 L 20 104/71 96 05/29/19 13:24 86 20 118/80 98 05/29/19 13:09 78 20 118/77 98 05/29/19 12:54 80 97 05/29/19 12:46 80 20 145/73 H 97 Diagnostic Findings CXR: neg for acute ECG Additional Comments: Reported to me as normal sinus per ED physician, actual EKG not available Code Status & VTE Plan Code Status Full code, although pt states no prolonged mechanical life support, feeding tubes, etc. Daughter is present and agrees VTE Prophylaxis Plan VTE Prophylaxis will be ordered: Yes PG Care Time/CCT Total # of Minutes Spent Total Time Spent with Patient: Total time spent is greater than 50% in coordination of care (as documented) at patient's floor/unit and/or counseling patient:
[2019-05-29] MEDS ORDERED: ONDANSETRON INJ 2 MG/ML 2 ML VIAL IV PRN (16:30)
[2019-05-29] MEDS ORDERED: MoRPHine SULFATE 2 MG/ML CARP IV PRN (16:30)
[2019-05-29] MEDS ORDERED: HEPARIN SODIUM/DEXTROSE 25,000 UNITS/500 ML BAG IV SCH (16:30)
[2019-05-29] MEDS ORDERED: ESTRADIOL APPL PV SCH (16:30)
[2019-05-29] MEDS ORDERED: ACETAMINOPHEN 325 MG TAB PO PRN (16:30)
[2019-05-29] MEDS: Heparin IV Standard *NO* Bolus IV SCH ×3 (17:22→17:46)
[2019-05-29] MEDS: TRAMADOL HCL 50 MG TABLET PO PRN (18:08)
[2019-05-29] MEDS: fentaNYL citrate 100 MCG/2 ML VIAL IV PRN (18:50)
[2019-05-29] MEDS: PREGABALIN 150 MG CAP PO SCH (20:38)
[2019-05-29] MEDS: PANTOprazole 40 MG TAB PO SCH (20:40)
[2019-05-29] MEDS: METOPROLOL SUCC 50MG EXT REL TAB PO SCH (20:40)
[2019-05-29] MEDS: ROSUVASTATIN CALCIUM 20 MG TAB PO SCH (20:40)
[2019-05-29] MEDS: ZOLPIDEM TARTRATE 5 MG TAB PO PRN (20:40)
[2019-05-29 22:39] LABS: Partial Thromboplastin Ratio 1.5; Partial Thromboplastin Time 41.2 Seconds (21.0-31.0)
[2019-05-29] MEDS ORDERED: HEPARIN IV BOLUS 2,000 UNITS in SYRINGE 0 ML IV ONE (23:00)
[2019-05-30] MEDS: TRAMADOL HCL 50 MG TABLET PO PRN ×2 (02:31→18:13)
[2019-05-30] MEDS: fentaNYL citrate 100 MCG/2 ML VIAL IV PRN ×2 (04:04→08:01)
[2019-05-30] MEDS ORDERED: TRAMADOL HCL 50 MG TABLET PO STA (05:44)
[2019-05-30 06:00] LABS: Partial Thromboplastin Ratio 2.3
[2019-05-30 06:16] LABS: Partial Thromboplastin Time 62.4 Seconds (21.0-31.0)
[2019-05-30 07:14] LABS: Estimated Average Glucose 163 mg/dl; Hemoglobin A1C 7.3 % (4.5-5.6)
[2019-05-30] MEDS: LOSARTAN POTASSIUM 50 MG TAB PO SCH (07:39)
[2019-05-30] MEDS: PROPRANOLOL HCL LA 80 MG CAPCR PO SCH (07:41)
[2019-05-30] MEDS: VENLAFAXINE HCL XR 75 MG CAPXR PO SCH (07:41)
[2019-05-30] MEDS: PANTOprazole 40 MG TAB PO SCH ×2 (07:41→20:02)
[2019-05-30] MEDS: PREGABALIN 150 MG CAP PO SCH ×2 (07:45→20:13)
[2019-05-30] MEDS ORDERED: NON-FORMULARY MEDICATION (Omeprazole 20 MG) PO SCH (09:00)
[2019-05-30] MEDS ORDERED: ASPIRIN 81 MG ECTAB PO STA (10:18)
[2019-05-30] MEDS ORDERED: fentaNYL citrate 100 MCG/2 ML VIAL ONE (11:08)
[2019-05-30] MEDS ORDERED: NiCARDipine HCL INJ 2.5 MG/ML 10 ML AMP ONE (11:08)
[2019-05-30] MEDS ORDERED: NITROGLYCERIN/D5W 100MCG/ML 20ML SYR ONE (11:08)
[2019-05-30] MEDS ORDERED: HEPARIN (PORCINE) 1000 UNIT/ML 10 ML (CATH LAB USE ONLY) ONE (11:08)
[2019-05-30] MEDS ORDERED: MIDAZOLAM HCL 1 MG/ML 2ML VIAL ONE (11:08)
--- NOTE | 2019-05-30 12:11 | Pre Anesthesia Assessment ---
Date of Service May 30, 2019 Pre Sedation Assessment Vital Signs Temp Pulse Pulse Resp BP BP BP 05/30/19 08:00 72 05/30/19 07:05 98.1 F 80 16 117/73 05/30/19 03:14 98.1 F 70 16 159/78 H 05/29/19 23:17 97.7 F 67 18 135/80 05/29/19 19:15 98.2 F 85 19 133/77 05/29/19 16:30 75 05/29/19 16:05 98.2 F 72 18 152/72 H 05/29/19 15:30 74 22 125/76 05/29/19 15:20 71 14 120/67 05/29/19 15:11 84 21 79/60 L 05/29/19 15:10 75 18 05/29/19 15:09 78 21 98/57 L 05/29/19 15:06 77 19 05/29/19 15:00 76 16 81/53 L 05/29/19 14:51 80 82 16 103/64 103/64 05/29/19 14:50 77 15 05/29/19 14:45 80 22 99/65 L 05/29/19 14:40 81 15 05/29/19 14:38 84 82 22 99/65 L 99/65 L 05/29/19 14:31 84 18 94/66 L 05/29/19 14:30 80 21 05/29/19 14:20 80 26 H 05/29/19 14:10 81 20 05/29/19 14:00 80 17 115/70 05/29/19 13:50 87 18 05/29/19 13:41 79 16 05/29/19 13:39 83 52 L 21 104/71 104/71 05/29/19 13:30 84 14 129/77 05/29/19 13:24 85 86 22 118/80 118/80 05/29/19 13:20 90 16 05/29/19 13:11 80 20 05/29/19 13:09 81 78 21 118/77 118/77 05/29/19 13:00 83 14 145/80 H 05/29/19 12:54 80 05/29/19 12:50 82 15 05/29/19 12:48 77 15 05/29/19 12:46 80 20 145/73 H 05/29/19 12:41 84 20 145/73 H Pulse Ox 05/30/19 08:00 05/30/19 07:05 95 05/30/19 03:14 95 05/29/19 23:17 96 05/29/19 19:15 95 05/29/19 16:30 05/29/19 16:05 93 05/29/19 15:30 97 05/29/19 15:20 96 05/29/19 15:11 96 05/29/19 15:10 99 05/29/19 15:09 99 05/29/19 15:06 97 05/29/19 15:00 94 05/29/19 14:51 98 05/29/19 14:50 96 05/29/19 14:45 97 05/29/19 14:40 97 05/29/19 14:38 96 05/29/19 14:31 94 05/29/19 14:30 97 05/29/19 14:20 96 05/29/19 14:10 96 05/29/19 14:00 96 05/29/19 13:50 92 05/29/19 13:41 98 05/29/19 13:39 94 05/29/19 13:30 97 05/29/19 13:24 95 05/29/19 13:20 98 05/29/19 13:11 96 05/29/19 13:09 94 05/29/19 13:00 99 05/29/19 12:54 97 05/29/19 12:50 97 05/29/19 12:48 97 05/29/19 12:46 97 05/29/19 12:41 94 Cardiovascular RRR, no murmur, no edema Respiratory normal respiratory effort, lungs clear to auscultation Pre-Sedation Airway Assessment Smoking Status: Never smoker Hx Sleep Apnea: No Hx Difficult Intubation: No Short, Thick Neck: No Thyromental Distance: > or= 3.5 Finger Breadths Oral Cavity: + WNL Mallampati Class: IV ASA: ASA3 NPO Status Date of Last Intake of Fluids: 05/29/19 Time of Last Intake of Fluids: 22:00 Date of Last Intake of Solid Food: 05/29/19 Time of Last Intake of Solid Foods: 22:00 Procedure Planning Contraindications for Sedation: none Current Medications Reviewed: Yes Notes The planned sedation has been discussed with the patient. Informed Consent was obtained. I have identified the patient, determined the appropriateness of sedation and have assessed the patient immediately prior to the procedure. All medicine(s) and interventions are by my order.
--- NOTE | 2019-05-30 12:11 | Cardiology Consultation ---
Date of Consultation May 30, 2019 Assessment & Plan (1) ACS (acute coronary syndrome): 2. History of multivessel coronary artery disease post anterior STEMI with PCI to mid LAD. Residual ostial circumflex/diagonal disease 3. Type 2 diabetes, complicated by peripheral neuropathy 4. Hypertension 5. Dyslipidemia Patient with acute onset chest pain yesterday reminiscent of prior ME. With patient's residual diagonal/ostial circumflex disease suspicion for ACS elevated even in the setting of negative biomarkers, unremarkable EKG. Recommend proceeding with cardiac catheterization via right radial artery later today. Discussed procedure, risks and benefits, alternatives with patient and she is willing to proceed. Further recommendations pending findings. Thank you for allowing us to participate in the care of this patient. Please contact with any questions. History of Present Illness Attending Physician: Minnie Guerrero MD History of Present Illness Mrs. Ospina is a very pleasant 64-year-old woman with a history of diabetes, hypertension, dyslipidemia, GERD, degenerative disc disease and coronary artery disease with prior anterior STEMI back in May 2016 readmitted yesterday in the setting of chest pain. Patient well-known to me from prior hospitalization and outpatient setting. At time of prior ME was treated with primary PCI with single drug-eluting stent (3.0 x 22 resolute) to mid LAD. Procedure uncomplicated. Noted to have residual non-culprit diagonal, ostial circumflex disease. Later underwent outpatient stress test which was negative for ischemia. Post ME patient is done very well, exercising regularly with no recurrent chest pain. Yesterday while at work developed acute onset chest pain with associated diapho resis. Pain reminiscent of prior pain with ME. In ED continue to have chest pain, EKG showed sinus rhythm without ST abnormality's. Troponin negative. Admitted for concern for an stable angina and started on heparin overnight. Troponins negative x3. Had intermittent chest pain overnight requiring IV fentanyl. Serial EKGs unremarkable. Telemetry unremarkable. Echocardiogram this morning showed preserved LV function with no regional wall motion abnormalities. Allergies Allergy/AdvReac Type Severity Reaction Status Date / Time No Known Allergies Allergy Verified 05/29/19 13:58 Home Medications Home Medications Medication Instructions Recorded Confirmed Type dapagliflozin-metformin 2 tabs PO QAM 09/01/18 05/29/19 History liraglutide 1.8 mg SUBCUT QAM 09/01/18 05/29/19 History metoprolol succinate 50 mg PO QPM 09/01/18 05/29/19 History venlafaxine 75 mg PO QAM 09/01/18 05/29/19 History omeprazole 20 mg PO QAM 09/05/18 05/29/19 History flash glucose sensor kit #2 ea 02/15/19 05/29/19 Rx estradiol 0.01% (0.1 mg/gram) See Rx Instructions PV .COMPLEX 03/06/19 05/29/19 History vaginal cream pregabalin 150 mg capsule 150 mg PO BID #180 cap 03/26/19 05/29/19 Rx propranolol ER 80 mg capsule,24 80 mg PO QAM #90 cap 05/03/19 05/29/19 Rx hr,extended release esomeprazole magnesium 40 mg PO HS 05/07/19 05/29/19 History losartan 100 mg PO QAM 05/07/19 05/29/19 History rosuvastatin 40 mg PO QPM 05/07/19 05/29/19 History tramadol 50 mg PO Q6H PRN #20 tab 05/09/19 05/29/19 Rx aspirin [Aspirin Low Dose] 81 mg PO DAILY 05/30/19 05/30/19 History Patient History Medical History Presence of drug coated stent in LAD coronary artery (Acute) IMPLANTED 3 YEARS AGO AT [facility] (DR. ELLIS) Postmenopausal atrophic vaginitis (Acute) Gastritis (Acute) Fibrocystic breast disease (Acute) Esophageal stricture (Acute) Diabetic peripheral neuropathy (Acute) Depression (Acute) DJD (degenerative joint disease) (Acute) CAD (coronary artery disease) (Acute) Anterior wall myocardial infarction (Acute) 3 YEARS AGO Hyperlipidemia (Chronic) Hypertension (Chronic) ACS (acute coronary syndrome) Chronic back pain follow with dr hernandez at pain management 2018 Diabetes mellitus, type 2 Hiatal hernia History of solitary pulmonary nodule NO LONGER SHOWS UP ON XRAY Migraine Schatzki's ring HAS EGD WITH DILATION Surgical History H/O: section (Resolved) x2 History of bilateral tubal ligation History of colonoscopy History of esophagogastroduodenoscopy (EGD) WITH DILATION History of laparoscopy fertility reason History of open reduction and internal fixation (ORIF) procedure right ankle--hardware in place History of tonsillectomy and adenoidectomy Family History Grandmother (Paternal) Family history of diabetes mellitus Father Myocardial infarction Social History Preferred Language: Colombian Communication Ability: Effective Hot Cell Technician Required: No Beliefs That Will Affect Care: None marital status: Current Living Situation: Spouse and Family current occupational status: employed Feels Safe at Home: Yes Smoking Status: Never smoker Second Hand Exposure: No ; Hx Alcohol Use: Yes Alcohol type: beer Hx Substance Use: No Review of Systems Review of Systems: All systems reviewed & are unremarkable except as noted in HPI & below Physical Exam Physical Exam: General: Comfortable, no acute distress Eyes: Sclerae anicteric, extraocular movements intact HENT: Oropharynx clear mucous membranes moist Neck: Normal carotid upstrokes, no bruits. No JVD. Lungs: Clear to auscultation bilaterally, no rhonchi or wheezes Cardiac: Regular rate and rhythm, no murmurs, rubs or gallops. Vascular: 2+ radial, DP and PT pulses. No varicosities. Abdomen: Soft, nontender, nondistended, positive bowel sounds. Extremities: Well perfused, no peripheral edema Skin: No rashes or lesions. Neuro: Nonfocal Psych: Alert orient x3, normal affect and mood Results & Data Vital Signs (Past 12 Hours) Vital Signs Temp Pulse Pulse Resp BP BP Pulse Ox 05/30/19 08:00 72 05/30/19 07:05 98.1 F 80 16 117/73 95 05/30/19 03:14 98.1 F 70 16 159/78 H 95 PG Care Time/CCT Total # of Minutes Spent Total Time Spent with Patient: Total time spent is greater than 50% in coordination of care (as documented) at patient's floor/unit and/or counseling patient:
--- NOTE | 2019-05-30 12:12 | Post Anesthesia Assessment ---
Date of Service May 30, 2019 Post Sedation Assessment Vital Signs Temp Pulse Pulse Resp BP BP BP 05/30/19 08:00 72 05/30/19 07:05 98.1 F 80 16 117/73 05/30/19 03:14 98.1 F 70 16 159/78 H 05/29/19 23:17 97.7 F 67 18 135/80 05/29/19 19:15 98.2 F 85 19 133/77 05/29/19 16:30 75 05/29/19 16:05 98.2 F 72 18 152/72 H 05/29/19 15:30 74 22 125/76 05/29/19 15:20 71 14 120/67 05/29/19 15:11 84 21 79/60 L 05/29/19 15:10 75 18 05/29/19 15:09 78 21 98/57 L 05/29/19 15:06 77 19 05/29/19 15:00 76 16 81/53 L 05/29/19 14:51 80 82 16 103/64 103/64 05/29/19 14:50 77 15 05/29/19 14:45 80 22 99/65 L 05/29/19 14:40 81 15 05/29/19 14:38 84 82 22 99/65 L 99/65 L 05/29/19 14:31 84 18 94/66 L 05/29/19 14:30 80 21 05/29/19 14:20 80 26 H 05/29/19 14:10 81 20 05/29/19 14:00 80 17 115/70 05/29/19 13:50 87 18 05/29/19 13:41 79 16 05/29/19 13:39 83 52 L 21 104/71 104/71 05/29/19 13:30 84 14 129/77 05/29/19 13:24 85 86 22 118/80 118/80 05/29/19 13:20 90 16 05/29/19 13:11 80 20 05/29/19 13:09 81 78 21 118/77 118/77 05/29/19 13:00 83 14 145/80 H 05/29/19 12:54 80 05/29/19 12:50 82 15 05/29/19 12:48 77 15 05/29/19 12:46 80 20 145/73 H 05/29/19 12:41 84 20 145/73 H Pulse Ox 05/30/19 08:00 05/30/19 07:05 95 05/30/19 03:14 95 05/29/19 23:17 96 05/29/19 19:15 95 05/29/19 16:30 05/29/19 16:05 93 05/29/19 15:30 97 05/29/19 15:20 96 05/29/19 15:11 96 05/29/19 15:10 99 05/29/19 15:09 99 05/29/19 15:06 97 05/29/19 15:00 94 05/29/19 14:51 98 05/29/19 14:50 96 05/29/19 14:45 97 05/29/19 14:40 97 05/29/19 14:38 96 05/29/19 14:31 94 05/29/19 14:30 97 05/29/19 14:20 96 05/29/19 14:10 96 05/29/19 14:00 96 05/29/19 13:50 92 05/29/19 13:41 98 05/29/19 13:39 94 05/29/19 13:30 97 05/29/19 13:24 95 05/29/19 13:20 98 05/29/19 13:11 96 05/29/19 13:09 94 05/29/19 13:00 99 05/29/19 12:54 97 05/29/19 12:50 97 05/29/19 12:48 97 05/29/19 12:46 97 05/29/19 12:41 94 Recovery Score Activity: Moves 4 extremities Respiration: Deep Breath/Cough Circulation: +/-20% PreAnes Value Consciousness: Fully Awake Oxygen Saturation: O2 needed for >90% Discharge Sedation Level of Care: Fast Track Phase II Post Sedation Plan On clinical assessment, the patient appears to have tolerated the sedation without complications. Patient is recovering as anticipated. Patient will continue to be monitored by nursing and may be discharged when sedation discharge criteria are met per below protocol. Upon Completions of procedure and additional 15 minutes continue every 5 minute vital signs and the P.A.R. score; then discharge to a Phase I or Fast Track to Phase II per the following guidelines: * Discharge Patient to appropriate Phase II area if PAR is 8 or greater or return to pre- procedure baseline. The post - procedure orders will be as directed. * If PAR score is less than 8 or not return to pre-procedure baseline then patient will follow Phase I monitoring till PAR is reached for Phase II. The Phase I may be done in procedure room or may call to secure a Phase I area. * If naloxone or flumazenil are used for reversal, hold in Phase I for continued monitoring from when last reversal dose was given for a minimum of 60 minutes or longer pending the nurse and/or physician discretion of patient condition before discharge to Phase II. Please call the Sedation Physician to re-evaluate and complete post-note for discharge to Phase II area. Do NOT discharge from procedure sedation or Phase 1 until post- sedation evaluation note is complete by procedure /sedation MD Sedation Discharge Instructions to be given to the patient at discharge to home.
--- NOTE | 2019-05-30 12:17 | Cardiac Catheterization ---
[facility] Data: Equine Manager Cardiac Status Clinical evaluation leading to the procedure CAD Presenation: Unstable angina Anginal Classification: CCS IV Heart Failure: No Cardiogenic Shock within 24 Hours: No Cardiac Arrest within 24 Hours: No Imaging Studies Past 6 Months: Yes Stress Studies Past 6 Months: No Diagnostic Physicians Name: Reinier Santos MD Status: Elective Closure Device Percutaneous Entry Location: Radial Closure Device: Radial Band Recommendations: Medical Therapy and/or Counseling Intraprocedure Events Significant Disection: No Perforation: No Cardiac Cath Procedure Full Procedure Date May 30, 2019 Pre-Procedure Diagnosis Pre-Procedure Diagnosis: Acute Coronary Syndrome AUC Score AUC Score: 7 Post-Procedure Diagnosis Post-Procedure Diagnosis: Severe CAD and Normal Intracardiac Pressures Procedure(s) Performed Procedure(s) Performed: Coronary Angiography, Left Heart Cath and Ultrasound Guided Vascular Access Barrel Rib Matting Machine Operator Reinier Santos MD Backup Sawyer(s) Mahin Estimated Blood Loss Estimated Blood Loss: 10 Medication(s) Medication(s): Fentanyl, Heparin, Lidocaine 1%, Nicardipine, Nitroglycerin and Versed Summary of Findings Indication: Suspected ACS Access: Ultrasound-guided 6 Fr slender right radial artery Catheters: [place] Findings: LM - No significant disease LAD - Mid LAD stent widely patent with minimal in-stent restenosis. Distal LAD wraps around the apex. 1st diagonal 70-80% ostial. Circumflex - ostial 60% eccentric stenosis, 30% mid disease. Large OM2 luminal irregularities RCA - dominant, tortuous, 30% mid RCA, mild luminal irregularities in distal RCA, PDA. 40% ostial R-PAV, distal R-PLB with luminal irregularities LVEDP - 7 Arterial Closure: TR Band Summary: 1. Stable severe coronary artery disease - 70-80% ostial diagonal disease - 60% ostial circumflex. - Widely patent mid LAD stent 2. Normal intracardiac filling pressure Recommendations: Coronary artery disease not significantly changed from 05/2016. No critical disease to explain patient's rest pain. Continue antianginal therapy, ASCVD risk factor modification. From a cardiac standpoint OK with discharge later today after TR band removed. Hemodynamics Rest Ao:: 105/48/88 Final Ao: 120/57/84 LV: 121/7 Recommendations Recommendations: Medical Therapy and/or Counseling Specimens Specimens: None Radiation Exposure (mGy) 694 Contrast (mls) 70 Visi Fluids (cc crystalloids) Fluids (cc crystalloids): 63 Drains Drains: none Anesthesia moderate Procedural Complication(s) None Disposition PCU I attest to the content of the Intraoperative Record and any orders documented therein. Any exceptions are noted below.
[2019-05-30] MEDS ORDERED: SODIUM CHLORIDE 0.9% 1000ML 1,000 ML IV SCH (12:45)
[2019-05-30] MEDS: HYDROCODONE/ACETAMOPHEN 5/325MG TAB PO PRN (20:00)
[2019-05-30] MEDS: METOPROLOL SUCC 50MG EXT REL TAB PO SCH (20:01)
[2019-05-30] MEDS: ROSUVASTATIN CALCIUM 20 MG TAB PO SCH (20:02)
[2019-05-30] MEDS: MAGNESIUM HYDROXIDE SUSP 30 ML UDC PO PRN (20:13)
--- NOTE | 2019-05-30 22:23 | Hospitalist Progress Note ---
Date of Service May 30, 2019 Assessment & Plan (1) Chest pain, precordial: Presented with left sided CP radiating to left axilla, left neck, and down left triceps similar to last presentation with ACS Had persistent pain throughout the night despite heparin gtt, nitroglycerin, aspirin Trop neg x3 EKG neg x2 CXR neg for acute ECHO with preserved EF and no wall motion abnormalities Given high suspicion for unstable angina, she was taken to the cardiac director of labor relations on 05/30--> mid LAD stent with minimal in-stent thrombosis and had stable disease from previous: - 70-80% ostial diagonal disease - 60% ostial circumflex. - Widely patent mid LAD stent Normal intracardiac filling pressure Cardiology said her chest pain was non-cardiac -Given radicular-like symptoms, development of paresthesias in left hand, suspect cervical radiculopathy as below -dc heparin gtt -continue pain control-ordered hydrocodone prn (2) Cervical radiculopathy: Presented as above, suspect left C8-T1 HNP, radiculopathy based on symptoms, weakness in interosseous dorsi, and decreased sensation left hand and medial forearm -hydrocodone prn pain -check MRI C-spine -no myelopathic signs at this time (3) CAD (coronary artery disease): With ETHEL placed LAD 2016 Cardiac cath here as above, stable from previous -restarted home ASA 81mg daily and added to home med rec -continue statin, metoprolol, losartan (4) DM type 2 (diabetes mellitus, type 2): SSI PRN A1c 7.3% -holding home Xigduo and liraglutide (5) Diabetic peripheral neuropathy: continue home pregabalin (6) Hyperlipidemia: continue statin (7) Hypertension: BPs controlled -continue home metoprolol, propranolol, losartan (8) Hot flashes: -continue estradiol vaginal cream, Effexor (9) GERD (gastroesophageal reflux disease): continue PPI no acute symptoms (10) Anemia: Mild, hgb 11.0 down from 12.5 one month ago. MCV high at 98 -check B12, folate (11) DVT prophylaxis: Heparin drip stopped compression stockings from home are in place Dispo-remain on PCU overnight for pain control, MRI C-spine Subjective Pt was seen twice today. The first time was in the AM before her cardiac cath. She was continuing to have ongoing left sided chest pain into her left axilla, down her left triceps and also up into the left side of her neck. Pain was waxing and waning but never completely went away all night. She reports it felt exactly like her previous angina before her [place]. She denies SOB, diaphoresis, nausea. Fentanyl helped the pain but nitroglycerin did not. She went for cath and has severe CAD but unchanged from previous. I saw her again in the evening and she reported the pain was down to a 2/10, but after walking a few laps around the halls and sitting down again, the pain returned. She also now has some numbness in her left hand and shooting pains up into the left neck. No h/o trauma or falls, no previous neck surgery but has had some whiplash injuries in the past and often feels a "crunching" in her neck with looking to the right. I discussed her case with Dr. Santos of Cardiology Tele with NSR, rates 60-70s Review of Systems Review of Systems: All systems reviewed & are unremarkable except as noted in HPI & below Physical Exam Constitutional: WD/WN, vitals as above Eyes: + anicteric sclerae ENMT: external ear and nose normal, oropharynx normal Neck: trachea midline, no thyromegaly Respiratory: normal respiratory effort, lungs clear to auscultation Cardiovascular: RRR, no murmur, no edema Chest (Breasts): Chest: normal inspection of chest (no TTP over chest wall) Breast: normal inspection of axillae and normal palpation of axillae Gastrointestinal (Abdomen): normal bowel sounds, soft, nontender, no hepatosplenomegaly Musculoskeletal: Head/Neck/Chest: full ROM of neck (+TTP over left lateral neck) Spine: no cervical spinal tenderness and no step off deformity Extremities: extremities normal to inspection; no cyanosis and no clubbing Skin: no rashes, warm and dry Neurologic: + focal motor deficit (mild weakness in left dorsal interosseous muscles,otherwise 5/5 in UEs/LEs) and awake; + abnormal deep tendon reflexes (1+ throughout biceps/triceps/brachiradialis/patellar/Achilles bilat) Motor/Sensory: + sensory deficit (+decreased sensation to light touch left dorsal hand) Cranial Nerves: no nystagmus Gait: no ataxic gait (with normal gait) and no scissors gait Psychiatric: A+Ox3, euthymic affect Results & Data Vital Signs (Past 12 Hours) Vital Signs Temp Pulse Pulse Pulse Resp BP BP 05/30/19 19:34 36.8 C 67 18 137/79 05/30/19 17:28 36.8 C 85 18 120/68 05/30/19 16:28 75 18 105/66 05/30/19 16:00 84 05/30/19 14:57 36.9 C 71 16 05/30/19 13:28 85 18 120/68 05/30/19 13:13 36.5 C 83 18 120/68 05/30/19 12:58 36.3 C L 79 18 113/64 05/30/19 12:43 36.4 C L 69 18 111/65 05/30/19 12:29 36.7 C 71 18 117/72 BP Pulse Ox 05/30/19 19:34 98 05/30/19 17:28 95 05/30/19 16:28 96 05/30/19 16:00 05/30/19 14:57 113/68 99 05/30/19 13:28 05/30/19 13:13 93 05/30/19 12:58 98 05/30/19 12:43 98 05/30/19 12:29 94 Laboratory Results 05/30/19 05/30/19 05/30/19 Range/Units 20:50 05:17 05:17 APTT 62.4 H* (21.0-31.0) Seconds PTT Ratio 2.3 POC Glucose 131 H (70-99) Estimat Average Glucose 163 mg/dl Hemoglobin A1c 7.3 H (4.5-5.6) % Troponin I (0-0.045) ng/ml 05/29/19 05/29/19 Range/Units 22:23 22:22 APTT 41.2 H (21.0-31.0) Seconds PTT Ratio 1.5 POC Glucose (70-99) Estimat Average Glucose mg/dl Hemoglobin A1c (4.5-5.6) % Troponin I < 0.015 (0-0.045) ng/ml Diagnostic Findings ECHO preserved LVEF, no WMAs, mild MR PG Care Time/CCT Total # of Minutes Spent Total Time Spent with Patient: Total time spent is greater than 50% in coordination of care (as documented) at patient's floor/unit and/or counseling patient:
[2019-05-31] MEDS: fentaNYL citrate 100 MCG/2 ML VIAL IV PRN (00:27)
[2019-05-31] MEDS: ZOLPIDEM TARTRATE 5 MG TAB PO PRN ×2 (00:28→20:56)
[2019-05-31 06:13] LABS: Hematocrit (blood only) 34.8 % (37-47); Hemoglobin 11.5 g/dL (12.0-16.0); Mean Corpuscular Hemoglobin 31.9 pg (25-34); Mean Corpuscular Volume 96.4 fL (80-100); Mean Platelet Volume 11.5 fL (7.4-10.4); Platelet Count 177 K/uL (130-400); RDW Coefficient of Variation 13.7 % (11.5-14.5); RDW Standard Deviation 47.1 fL (36.4-46.3); Red Blood Count 3.61 M/uL (4.2-5.4); White Blood Count 4.77 K/uL (4.8-10.8)
[2019-05-31 06:23] LABS: Partial Thromboplastin Ratio 0.9; Partial Thromboplastin Time 23.7 Seconds (21.0-31.0)
[2019-05-31 06:40] LABS: BUN Creatinine Ratio 15.6 (10-20); Calcium 8.9 mg/dl (8.5-10.1); Creatinine Clr Calc Pharmacy 40.5 ml/min; Est GFR (African American) 47.9; Est GFR (Non-African American) 41.3; Potassium 4.1 mmol/L (3.5-5.1)
[2019-05-31] MEDS: HYDROCODONE/ACETAMOPHEN 5/325MG TAB PO PRN ×4 (07:19→20:56)
[2019-05-31 07:30] LABS: Basophils # (auto) 0.05 K/uL (0-0.2); Eosinophils % (auto) 4.2 %; Immature Granulocytes # (auto) 0.01 K/uL (0.00-0.02); Immature Granulocytes % (auto) 0.2 %; Lymphocytes # (auto) 2.78 K/uL (1.2-3.4); Lymphocytes % (auto) 58.3 %; Monocytes # (auto) 0.42 K/uL (0.11-0.59); Monocytes % (auto) 8.8 %; Neutrophils # (auto) 1.31 K/uL (1.4-6.5); Neutrophils % (auto) 27.5 %
--- NOTE | 2019-05-31 08:06 | Magnetic Resonance Report ---
CERVICAL SPINE MRI HISTORY: left upper extremity pain,hand numbness,r/o HNP TECHNIQUE: Multiplanar multisequence MRI of the cervical spine was performed without the use of contr ast. COMPARISON STUDY: None. FINDINGS: No fracture or subluxation. Mild disc space narrowing at C6-C7 and C7-T1. Prevertebral soft tissues and the C1-C2 interval are intact. The visualized posterior fossa is unremarkable. The cervi joanna spinal cord demonstrates a normal signal intensity. Mild facet degenerative changes throughout th e cervical spine. Mild endplate edema at C6-C7 is likely due to the degenerative change. C2-C3: No significant central canal or neural foraminal narrowing. C3-C4: No significant central canal narrowing. Severe right-sided neural foraminal narrowing. No sign ificant left-sided neural foraminal narrowing. C4-C5: No significant central canal narrowing. Mild bilateral neural foraminal narrowing. C5-C6: No significant central canal or neural foraminal narrowing. C6-C7: Small broad-based posterior disc bulge without significant central canal narrowing. There is m oderate bilateral neural foraminal narrowing. C7-T1: Moderate sized left paracentral focal disc protrusion measuring 5 mm which abuts and slightly deforms the left anterior cord. This likely compresses the exiting left nerve root at this level. No significant right-sided neural foraminal narrowing. IMPRESSION: 1. Moderate-sized left paracentral focal disc protrusion at C7-T1 which abuts and slightly deforms th e left anterior cord. This likely compresses the exiting left nerve root at this level. 2. Additional degenerative changes as described above. Electronically signed by: Solomon Luna M.D. 05/31/2019 8:05 AM
[2019-05-31] MEDS: VENLAFAXINE HCL XR 75 MG CAPXR PO SCH (08:21)
[2019-05-31] MEDS: PROPRANOLOL HCL LA 80 MG CAPCR PO SCH (08:21)
[2019-05-31] MEDS: PANTOprazole 40 MG TAB PO SCH ×2 (08:21→20:55)
[2019-05-31] MEDS: PREGABALIN 150 MG CAP PO SCH ×2 (08:21→20:55)
[2019-05-31] MEDS: LOSARTAN POTASSIUM 50 MG TAB PO SCH (08:21)
[2019-05-31] MEDS ORDERED: ASPIRIN 81 MG ECTAB PO SCH (09:00)
[2019-05-31 12:42] LABS: Folate (Folic Acid) 10.74 ng/ml (>5.38)
--- NOTE | 2019-05-31 12:46 | Orthopedic Consultation ---
Date of Consultation May 31, 2019 Assessment & Plan (1) Herniation of cervical intervertebral disc with radiculopathy: At this time patient is quite uncomfortable unable to sleep and has evidence of neurologic deficit. She would like to pursue surgical intervention. Would require an anterior cervical discectomy and fusion at C7-T1 and possible C6-C7. Goals would be complete removal of the disc fragments decompressing the nerve roots and provide marked improvement of her pain and hopefully steady improvement of her strength and numbness. Risk benefits pros cons alternatives were outlined in detail. Risks include but not limited to from anesthesia blindness stroke paralysis nerve damage blood loss current transfusion infection requiring reoperation dysphonia dysphagia. Benefits hopefully marked improvement of her radicular complaints. At this time we will make her n.p.o. after midnight and try for surgery first thing in the morning to alleviate her severe discomfort. Present on Admission?: Yes History of Present Illness Reason for Consultation: This is a 64-year-old [id number] female who presents with severe chest and left arm pain 2 days ago. She underwent extensive work-up for cardiac disease and determined to be noncardiac in nature. Further work-up did include an MRI of the cervical spine which determined she has a very substantial disc herniation at C7-T1 with marked neural compression undoubtedly accounting for symptom complex. Today she complains of pain rating up the left side of her neck into the left interscapular region down the posterior aspect of her arm and numbness and affecting the entire hand. She is quite uncomfortable. She is unable to sleep with this. She does get some modest relief with narcotic medication. Attending Physician: Minnie Guerrero MD Allergies Allergy/AdvReac Type Severity Reaction Status Date / Time No Known Allergies Allergy Verified 05/29/19 13:58 Home Medications Home Medications Medication Instructions Recorded Confirmed Type dapagliflozin-metformin 2 tabs PO QAM 09/01/18 05/29/19 History liraglutide 1.8 mg SUBCUT QAM 09/01/18 05/29/19 History metoprolol succinate 50 mg PO QPM 09/01/18 05/29/19 History venlafaxine 75 mg PO QAM 09/01/18 05/29/19 History omeprazole 20 mg PO QAM 09/05/18 05/29/19 History flash glucose sensor kit #2 ea 02/15/19 05/29/19 Rx estradiol 0.01% (0.1 mg/gram) See Rx Instructions PV .COMPLEX 03/06/19 05/29/19 History vaginal cream pregabalin 150 mg capsule 150 mg PO BID #180 cap 03/26/19 05/29/19 Rx propranolol ER 80 mg capsule,24 80 mg PO QAM #90 cap 05/03/19 05/29/19 Rx hr,extended release esomeprazole magnesium 40 mg PO HS 05/07/19 05/29/19 History losartan 100 mg PO QAM 05/07/19 05/29/19 History rosuvastatin 40 mg PO QPM 05/07/19 05/29/19 History tramadol 50 mg PO Q6H PRN #20 tab 05/09/19 05/29/19 Rx aspirin [Aspirin Low Dose] 81 mg PO DAILY 05/30/19 05/30/19 History Patient History Medical History Presence of drug coated stent in LAD coronary artery (Acute) IMPLANTED 3 YEARS AGO AT [facility] (DR. ELLIS) Postmenopausal atrophic vaginitis (Acute) Gastritis (Acute) Fibrocystic breast disease (Acute) Esophageal stricture (Acute) Diabetic peripheral neuropathy (Acute) Depression (Acute) DJD (degenerative joint disease) (Acute) CAD (coronary artery disease) (Acute) Anterior wall myocardial infarction (Acute) 3 YEARS AGO Hyperlipidemia (Chronic) Hypertension (Chronic) ACS (acute coronary syndrome) Chronic back pain follow with dr hernandez at pain management 2018 Diabetes mellitus, type 2 Hiatal hernia History of solitary pulmonary nodule NO LONGER SHOWS UP ON XRAY Migraine Schatzki's ring HAS EGD WITH DILATION Surgical History H/O: section (Resolved) x2 History of bilateral tubal ligation History of colonoscopy History of esophagogastroduodenoscopy (EGD) WITH DILATION History of laparoscopy fertility reason History of open reduction and internal fixation (ORIF) procedure right ankle--hardware in place History of tonsillectomy and adenoidectomy Family History Grandmother (Paternal) Family history of diabetes mellitus Father Myocardial infarction Social History Preferred Language: Frisian Communication Ability: Effective Pharmacy Informatics Manager Required: No Beliefs That Will Affect Care: None marital status: Current Living Situation: Spouse and Family current occupational status: employed Feels Safe at Home: Yes Smoking Status: Never smoker Second Hand Exposure: No ; Hx Alcohol Use: Yes Alcohol type: beer Hx Substance Use: No Physical Exam Physical Exam: Physical exam she is able to stand and ambulate about the room and narrow steady gait. She exhibits a severely positive Spurling sign to the left. Negative the right. She has some deficits to grasp on the left compared to the right over her biceps triceps and deltoids appear to be symmetric. She exhibits significant numbness to the left upper extremity compared to the right and affecting all fingers. Results & Data Vital Signs (Past 12 Hours) Vital Signs Temp Pulse Resp BP Pulse Ox 05/31/19 11:03 36.7 C 69 17 124/75 95 05/31/19 07:13 36.7 C 70 16 146/78 H 99
--- NOTE | 2019-05-31 13:33 | Hospitalist Progress Note ---
Date of Service May 31, 2019 Assessment & Plan (1) Chest pain, precordial: Presented with left sided CP radiating to left axilla, left neck, and down left triceps similar to last presentation with ACS Had persistent pain throughout the night despite heparin gtt, nitroglycerin, aspirin Trop neg x3 EKG neg x2 CXR neg for acute ECHO with preserved EF and no wall motion abnormalities Given high suspicion for unstable angina, she was taken to the cardiac medical laboratory specialist on 05/30--> mid LAD stent with minimal in-stent thrombosis and had stable disease from previous: - 70-80% ostial diagonal disease - 60% ostial circumflex. - Widely patent mid LAD stent Normal intracardiac filling pressure Cardiology said her chest pain was non-cardiac -Given radicular-like symptoms, development of paresthesias in left hand, suspected and then confirmed cervical radiculopathy as below -continue pain control-ordered hydrocodone prn (2) Cervical radiculopathy: Presented as above, suspected left C7-T1 HNP, radiculopathy based on symptoms, weakness in interosseous dorsi, and decreased sensation left hand and medial forearm MRI C-spine shows: C2-C3: No significant central canal or neural foraminal narrowing. C3-C4: No significant central canal narrowing. Severe right-sided neural foraminal narrowing. No significant left-sided neural foraminal narrowing. C4-C5: No significant central canal narrowing. Mild bilateral neural foraminal narrowing. C5-C6: No significant central canal or neural foraminal narrowing. C6-C7: Small broad-based posterior disc bulge without significant central canal narrowing. There is moderate bilateral neural foraminal narrowing. C7-T1: Moderate sized left paracentral focal disc protrusion measuring 5 mm which abuts and slightly deforms the left anterior cord. This likely compresses the exiting left nerve root at this level. No significant right-sided neural foraminal narrowing. 1. Moderate-sized left paracentral focal disc protrusion at C7-T1 which abuts and slightly deforms the left anterior cord. This likely compresses the exiting left nerve root at this level. 2. Additional degenerative changes as described above. Discussed results with pt--> consulted Ortho Spine--> pt agreeable to ACDF tomorrow -continue hydrocodone prn pain -no myelopathic signs at this time -medically optimized from a cardiac standpoint for surgery (3) CAD (coronary artery disease): With ETHEL placed LAD 2015 Cardiac cath here as above, stable from previous -continue ASA 81mg daily -continue statin, metoprolol, losartan (4) DM type 2 (diabetes mellitus, type 2): A1c 7.3% -holding home Xigduo and liraglutide -accuchecks and SSI added today (5) Diabetic peripheral neuropathy: continue home pregabalin (6) Hyperlipidemia: continue statin (7) Hypertension: BPs controlled -continue home metoprolol, propranolol, losartan (8) Hot flashes: -continue estradiol vaginal cream, Effexor (9) GERD (gastroesophageal reflux disease): continue PPI no acute symptoms (10) Anemia: Mild, hgb 11.0 down from 12.5 one month ago. MCV high at 98 B12, folate normal -follow as outpt (11) DVT prophylaxis: compression stockings from home are in place Dispo-stable for downgrade to med/surgical floor Plan for ACDF tomorrow NPO after midnight Subjective Still having a lot of pain in left axilla and down left arm, still with numbness in left hand and left neck Denies SOB, chest pain. MRI C-spine results reviewed with her Discussed case with Dr. Garzon and Dr. Tom Arrieta with NSR rates 60s-70s Review of Systems Review of Systems: All systems reviewed & are unremarkable except as noted in HPI & below Physical Exam Constitutional: WD/WN, vitals as above Eyes: + anicteric sclerae Neck: trachea midline, no thyromegaly Respiratory: normal respiratory effort, lungs clear to auscultation Cardiovascular: RRR, no murmur, no edema Chest (Breasts): Breast: normal inspection of axillae and normal palpation of axillae Gastrointestinal (Abdomen): normal bowel sounds, soft, nontender, no hepatosplenomegaly Musculoskeletal: Head/Neck/Chest: full ROM of neck (+TTP over left lateral neck) Spine: no cervical spinal tenderness and no step off deformity Extremities: extremities normal to inspection; no cyanosis and no clubbing Skin: no rashes, warm and dry Neurologic: + focal motor deficit (mild weakness in left dorsal interosseous muscles,otherwise 5/5 in UEs/LEs) and awake; + abnormal deep tendon reflexes (1+ throughout biceps/triceps/brachiradialis/patellar/Achilles bilat) Motor/Sensory: + sensory deficit (+decreased sensation to light touch left dorsal hand and left medial forear) Cranial Nerves: no nystagmus Gait: no ataxic gait (with normal gait) and no scissors gait Psychiatric: A+Ox3, euthymic affect Results & Data Vital Signs (Past 12 Hours) Vital Signs Temp Pulse Pulse Resp BP Pulse Ox 05/31/19 11:03 36.7 C 69 17 124/75 95 05/31/19 08:00 65 05/31/19 07:13 36.7 C 70 16 146/78 H 99 Laboratory Results 05/31/19 05/31/19 05/31/19 Range/Units 20:46 17:18 14:15 WBC (4.8-10.8) K/uL RBC (4.2-5.4) M/uL Hgb (12.0-16.0) g/dL Hct (37-47) % MCV (80-100) fL MCH (25-34) pg MCHC (32-36) g/dL RDW Std Deviation (36.4-46.3) fL RDW Coeff of Gita (11.5-14.5) % Plt Count (130-400) K/uL MPV (7.4-10.4) fL Immature Gran % (Auto) % Neut % (Auto) % Lymph % (Auto) % [place] % (Auto) % Eos % (Auto) % Baso % (Auto) % Immature Gran # (Auto) (0.00-0.02) K/uL Neut # (Auto) (1.4-6.5) K/uL Lymph # (Auto) (1.2-3.4) K/uL [place] # (Auto) (0.11-0.59) K/uL Eos # (Auto) (0-0.5) K/uL Baso # (Auto) (0-0.2) K/uL APTT (21.0-31.0) Seconds PTT Ratio Sodium (136-145) mmol/L Potassium (3.5-5.1) mmol/L Chloride (98-107) mmol/L Carbon Dioxide (21-32) mmol/L Anion Gap (3-11) BUN (7-18) mg/dl Creatinine (0.6-1.2) mg/dl Est Cr Clr Drug Dosing ml/min Est GFR ( Amer) Est GFR (Non-Af Amer) BUN/Creatinine Ratio (10-20) Glucose (70-99) mg/dl POC Glucose 137 H 141 H (70-99) Calcium (8.5-10.1) mg/dl Vitamin B12 (211-911) pg/ml Folate (>5.38) ng/ml Blood Type A Positive Antibody Screen NEGATIVE 05/31/19 05/31/19 05/31/19 Range/Units 11:31 07:11 05:28 WBC (4.8-10.8) K/uL RBC (4.2-5.4) M/uL Hgb (12.0-16.0) g/dL Hct (37-47) % MCV (80-100) fL MCH (25-34) pg MCHC (32-36) g/dL RDW Std Deviation (36.4-46.3) fL RDW Coeff of Gita (11.5-14.5) % Plt Count (130-400) K/uL MPV (7.4-10.4) fL Immature Gran % (Auto) % Neut % (Auto) % Lymph % (Auto) % [place] % (Auto) % Eos % (Auto) % Baso % (Auto) % Immature Gran # (Auto) (0.00-0.02) K/uL Neut # (Auto) (1.4-6.5) K/uL Lymph # (Auto) (1.2-3.4) K/uL [place] # (Auto) (0.11-0.59) K/uL Eos # (Auto) (0-0.5) K/uL Baso # (Auto) (0-0.2) K/uL APTT (21.0-31.0) Seconds PTT Ratio Sodium (136-145) mmol/L Potassium (3.5-5.1) mmol/L Chloride (98-107) mmol/L Carbon Dioxide (21-32) mmol/L Anion Gap (3-11) BUN (7-18) mg/dl Creatinine (0.6-1.2) mg/dl Est Cr Clr Drug Dosing ml/min Est GFR ( Amer) Est GFR (Non-Af Amer) BUN/Creatinine Ratio (10-20) Glucose (70-99) mg/dl POC Glucose 134 H 141 H (70-99) Calcium (8.5-10.1) mg/dl Vitamin B12 516 (211-911) pg/ml Folate 10.74 (>5.38) ng/ml Blood Type Antibody Screen 05/31/19 05/31/19 05/31/19 Range/Units 05:28 05:28 05:28 WBC 4.77 L (4.8-10.8) K/uL RBC 3.61 L (4.2-5.4) M/uL Hgb 11.5 L (12.0-16.0) g/dL Hct 34.8 L (37-47) % MCV 96.4 (80-100) fL MCH 31.9 (25-34) pg MCHC 33.0 (32-36) g/dL RDW Std Deviation 47.1 H (36.4-46.3) fL RDW Coeff of Gita 13.7 (11.5-14.5) % Plt Count 177 (130-400) K/uL MPV 11.5 H (7.4-10.4) fL Immature Gran % (Auto) 0.2 % Neut % (Auto) 27.5 % Lymph % (Auto) 58.3 % [place] % (Auto) 8.8 % Eos % (Auto) 4.2 % Baso % (Auto) 1.0 % Immature Gran # (Auto) 0.01 (0.00-0.02) K/uL Neut # (Auto) 1.31 L (1.4-6.5) K/uL Lymph # (Auto) 2.78 (1.2-3.4) K/uL [place] # (Auto) 0.42 (0.11-0.59) K/uL Eos # (Auto) 0.20 (0-0.5) K/uL Baso # (Auto) 0.05 (0-0.2) K/uL APTT 23.7 (21.0-31.0) Seconds PTT Ratio 0.9 Sodium 136 (136-145) mmol/L Potassium 4.1 (3.5-5.1) mmol/L Chloride 102 (98-107) mmol/L Carbon Dioxide 28 (21-32) mmol/L Anion Gap 6.0 (3-11) BUN 21 H (7-18) mg/dl Creatinine 1.36 H (0.6-1.2) mg/dl Est Cr Clr Drug Dosing 40.5 ml/min Est GFR ( Amer) 47.9 Est GFR (Non-Af Amer) 41.3 BUN/Creatinine Ratio 15.6 (10-20) Glucose 131 H (70-99) mg/dl POC Glucose (70-99) Calcium 8.9 (8.5-10.1) mg/dl Vitamin B12 (211-911) pg/ml Folate (>5.38) ng/ml Blood Type Antibody Screen Diagnostic Findings CERVICAL SPINE MRI HISTORY: left upper extremity pain,hand numbness,r/o HNP TECHNIQUE: Multiplanar multisequence MRI of the cervical spine was performed without the use of contrast. COMPARISON STUDY: None. FINDINGS: No fracture or subluxation. Mild disc space narrowing at C6-C7 and C7- T1. Prevertebral soft tissues and the C1-C2 interval are intact. The visualized posterior fossa is unremarkable. The cervical spinal cord demonstrates a normal signal intensity. Mild facet degenerative changes throughout the cervical spine. Mild endplate edema at C6-C7 is likely due to the degenerative change. C2-C3: No significant central canal or neural foraminal narrowing. C3-C4: No significant central canal narrowing. Severe right-sided neural foraminal narrowing. No significant left-sided neural foraminal narrowing. C4-C5: No significant central canal narrowing. Mild bilateral neural foraminal narrowing. C5-C6: No significant central canal or neural foraminal narrowing. C6-C7: Small broad-based posterior disc bulge without significant central canal narrowing. There is moderate bilateral neural foraminal narrowing. C7-T1: Moderate sized left paracentral focal disc protrusion measuring 5 mm which abuts and slightly deforms the left anterior cord. This likely compresses the exiting left nerve root at this level. No significant right-sided neural foraminal narrowing. IMPRESSION: 1. Moderate-sized left paracentral focal disc protrusion at C7-T1 which abuts and slightly deforms the left anterior cord. This likely compresses the exiting left nerve root at this level. 2. Additional degenerative changes as described above. PG Care Time/CCT Total # of Minutes Spent Total Time Spent with Patient: Total time spent is greater than 50% in coordination of care (as documented) at patient's floor/unit and/or counseling patient:
--- NOTE | 2019-05-31 15:40 | Anesthesiology Consultation ---
Date of Service May 31, 2019 Assessment & Plan (1) Encounter for pre-operative examination: Chart Review Chart Review: Acceptable Risk for Surgery and Patient NOT seen in Pre Admission Testing Consults Requested none History Surgery Operation Date: 05/30/19 09:45 Proposed Procedures p Cardiac Cath Procedure - Pillo Ellis MD Operation Date: 06/01/19 07:45 Proposed Procedures p C6-C7, C7-T1 Anterior Cervical Discectomy and Fusion, with Spinal Cord Monitoring - Geovanni Garzon DO Height/Weight Height: 5 ft 4 in Weight: 69.3 kg Allergies Allergy/AdvReac Type Severity Reaction Status Date / Time No Known Allergies Allergy Verified 05/29/19 13:58 Medications Home Medications Medication Instructions Recorded Confirmed Last Taken dapagliflozin-metformin 2 tabs PO QAM 09/01/18 05/29/19 05/07/19 liraglutide 1.8 mg SUBCUT QAM 09/01/18 05/29/19 05/08/19 metoprolol succinate 50 mg PO QPM 09/01/18 05/29/19 05/08/19 venlafaxine 75 mg PO QAM 09/01/18 05/29/19 05/08/19 omeprazole 20 mg PO QAM 09/05/18 05/29/19 05/08/19 05:00 flash glucose sensor kit #2 ea 02/15/19 05/29/19 Unknown estradiol 0.01% (0.1 mg/gram) See Rx Instructions PV .COMPLEX 03/06/19 05/29/19 05/08/19 vaginal cream pregabalin 150 mg capsule 150 mg PO BID #180 cap 03/26/19 05/29/19 05/08/19 propranolol ER 80 mg capsule,24 80 mg PO QAM #90 cap 05/03/19 05/29/19 05/08/19 05:00 hr,extended release esomeprazole magnesium 40 mg PO HS 05/07/19 05/29/19 Unknown losartan 100 mg PO QAM 05/07/19 05/29/19 05/08/19 05:00 rosuvastatin 40 mg PO QPM 05/07/19 05/29/19 05/08/19 tramadol 50 mg PO Q6H PRN #20 tab 05/09/19 05/29/19 Unknown aspirin [Aspirin Low Dose] 81 mg PO DAILY 05/30/19 05/30/19 1 Day Ago ~05/29/19 Active Medications Generic Name Dose Route Start Last Admin Trade Name Freq PRN Reason Stop Dose Admin Hydrocodone Bitart/Acetaminophen 2 tab 05/31/19 11:00 05/31/19 15:24 Schlater 5/325 PO 06/13/19 19:04 2 tab Q4 PRN Administration Pain Aspirin 81 mg 05/31/19 09:00 05/31/19 08:21 Ecotrin Ectab PO 06/30/19 08:59 81 mg QAM THERESA Administration Losartan Potassium 100 mg 05/30/19 09:00 05/31/19 08:21 Cozaar PO 06/29/19 08:59 100 mg QAM THERESA Administration Magnesium Hydroxide 30 ml 05/29/19 16:30 05/30/19 20:13 Milk Of Magnesia PO 06/28/19 16:29 30 ml Q12H PRN Administration Constipation Metoprolol Succinate 50 mg 05/29/19 21:00 05/30/19 20:01 Toprol Xl PO 06/28/19 20:59 50 mg QPM THERESA Administration Pantoprazole Sodium 40 mg 05/29/19 21:00 05/31/19 08:21 Protonix PO 06/28/19 20:59 40 mg BID THERESA Administration Pregabalin 150 mg 05/29/19 21:00 05/31/19 08:21 Lyrica PO 06/28/19 20:59 150 mg BID THERESA Administration Propranolol HCl 80 mg 05/30/19 09:00 05/31/19 08:21 Inderal La PO 06/29/19 08:59 80 mg QAM THERESA Administration Rosuvastatin Calcium 40 mg 05/29/19 21:00 05/30/19 20:02 Crestor PO 06/28/19 20:59 40 mg QPM THERESA Administration Tramadol HCl 50 mg 05/29/19 16:30 05/30/19 18:13 Ultram PO 06/28/19 16:29 50 mg Q6H PRN Administration pain Venlafaxine HCl 75 mg 05/30/19 09:00 05/31/19 08:21 Effexor Extended Release PO 06/29/19 08:59 75 mg QAM THERESA Administration Zolpidem Tartrate 5 mg 05/29/19 16:30 05/31/19 00:28 Ambien PO 06/28/19 16:29 5 mg HS PRN Administration Sleep Past Medical History Medical History Presence of drug coated stent in LAD coronary artery (Acute) IMPLANTED 3 YEARS AGO AT [facility] (DR. ELLIS) Postmenopausal atrophic vaginitis (Acute) Gastritis (Acute) Fibrocystic breast disease (Acute) Esophageal stricture (Acute) Diabetic peripheral neuropathy (Acute) DJD (degenerative joint disease) (Acute) CAD (coronary artery disease) (Acute) Anterior wall myocardial infarction (Acute) 3 YEARS AGO Hyperlipidemia (Chronic) Hypertension (Chronic) ACS (acute coronary syndrome) Cervical radiculopathy Chronic back pain follow with dr hernandez at pain management 2018 Diabetes mellitus, type 2 Hiatal hernia History of solitary pulmonary nodule NO LONGER SHOWS UP ON XRAY Migraine Schatzki's ring HAS EGD WITH DILATION Recent chest pain 05/29/2019: Had chest pain persistent despite heparin ggt, Nitro, ASA. Troponins negative x3, EKG neg x2. CXR neg. ECHO with preserved EF and no wall motion abnormalities. CARDIOLOGY SAID HER CHEST PAIN WAS NON-CARDIAC Past Family History Family History Grandmother (Paternal) Family history of diabetes mellitus Father Myocardial infarction Past Surgical History Surgical History H/O: section (Resolved) x2 History of bilateral tubal ligation History of colonoscopy History of esophagogastroduodenoscopy (EGD) WITH DILATION History of laparoscopy fertility reason History of open reduction and internal fixation (ORIF) procedure right ankle--hardware in place History of tonsillectomy and adenoidectomy Social History Smoking Status: Never smoker Do You Dip or Chew Tobacco: No Hx Alcohol Use: Yes Alcohol type: beer alcohol intake frequency: a few times a week Hx Substance Use: No substance use type: does not use Physical Exam Vital Signs Last Vital Signs Temp 36.7 C 05/31/19 11:03 Pulse 69 05/31/19 11:03 Resp 17 05/31/19 11:03 BP 124/75 05/31/19 11:03 Pulse Ox 95 05/31/19 11:03 Testing Laboratory Results 05/31/19 05:28 10/24/19 05:28 PT 10.4 Seconds (9.0-12.0) 05/29/19 12:54 INR 1.0 (0.9-1.1) 05/29/19 12:54 APTT 23.7 Seconds (21.0-31.0) 05/31/19 05:28 Hemoglobin A1c 7.3 % (4.5-5.6) H 05/30/19 05:17 Blood Type A Positive 05/31/19 14:15 Antibody Screen NEGATIVE 05/31/19 14:15 05/31/19 05/31/19 11:31 07:11 POC Glucose 134 H 141 H Electrocardiogram Date: 05/31/19 Findings: + NSR @ (75) Normal sinus rhythm Low voltage QRS Borderline ECG When compared with ECG of 30-MAY-2019 06:44, No significant change was found Confirmed by Torres Carey ([id number]) on 05/31/2019 1:33:55 PM Chest X-Ray Date: 05/29/19 XR chest 1V portable CLINICAL HISTORY: Chest Pain pain COMPARISON STUDY: 09/01/2018 FINDINGS: The bones soft tissues and hemidiaphragms are normal. The cardiomediastinal silhouette is normal. The lungs are clear. The pulmonary vasculature is normal. IMPRESSION: Negative chest. Echocardiogram Date: 05/30/19 Normal LV size. Mild LVH. EF 55-60%. No RWMA. Normal RV size and function. Mild MR. Compred with prior study, LV function has normalized, regional wall motion abnormalities resolved. Cardiac Catheterization Date: 05/30/19 Findings: LM - No significant disease LAD - Mid LAD stent widely patent with minimal in-stent restenosis. Distal LAD wraps around the apex. 1st diagonal 70-80% ostial. Circumflex - ostial 60% eccentric stenosis, 30% mid disease. Large OM2 luminal irregularities RCA - dominant, tortuous, 30% mid RCA, mild luminal irregularities in distal RCA, PDA. 40% ostial R-PAV, distal R-PLB with luminal irregularities LVEDP - 7 Arterial Closure: TR Band Summary: 1. Stable severe coronary artery disease - 70-80% ostial diagonal disease - 60% ostial circumflex. - Widely patent mid LAD stent 2. Normal intracardiac filling pressure Recommendations: Coronary artery disease not significantly changed from 05/2016. No critical disease to explain patient's rest pain. Continue antianginal therapy, ASCVD risk factor modification. From a cardiac standpoint OK with discharge later today after TR band removed.
[2019-05-31] MEDS: MAGNESIUM HYDROXIDE SUSP 30 ML UDC PO PRN (15:49)
--- NOTE | 2019-05-31 16:18 | Cardiology Progress Note ---
Date of Service May 31, 2019 Assessment & Plan (1) Cervical radiculopathy: 2. History of multivessel coronary artery disease post anterior STEMI with PCI to mid LAD. Residual ostial circumflex/diagonal disease 3. Type 2 diabetes, complicated by peripheral neuropathy 4. Hypertension 5. Dyslipidemia Cardiac work-up has been unremarkable. Coronary artery disease unchanged from 3 years ago. Cardiac enzymes negative. Echo showed preserved LV function. Do not feel patient's presenting symptoms secondary to her cardiac disease. Underwent MRI yesterday notable for focal disc protrusion at C7-T1 likely impacting nerve root at this level. Spine surgery being considered. From a cardiac standpoint no contraindications to undergoing procedure. Patient okay to proceed without any additional testing. Please contact if any questions. Subjective Feeling well today. No recurrent chest pain. Review of Systems Review of Systems: All systems reviewed & are unremarkable except as noted in HPI & below Physical Exam Physical Exam: General: Comfortable, no acute distress HEENT: Sclerae anicteric, mucous membranes moist Lungs: Clear to auscultation bilaterally, no rhonchi or wheezes Cardiac: Regular rate and rhythm, no murmurs. No JVD. Abdomen: Soft, nontender, nondistended, positive bowel sounds. Extremities: Warm, well perfused, no edema. Right radial artery access site with no ecchymosis, hematoma. Distal pulse and sensation intact. Skin: No rashes or lesions. Neuro: Nonfocal Psych: Alert orient x3, normal affect and mood Results & Data Vital Signs (Past 12 Hours) Vital Signs Temp Pulse Pulse Resp BP BP Pulse Ox 05/31/19 15:53 98.4 F 65 16 120/69 98 05/31/19 11:03 98.1 F 69 17 124/75 95 05/31/19 08:00 65 05/31/19 07:13 98.1 F 70 16 146/78 H 99 PG Care Time/CCT Total # of Minutes Spent Total Time Spent with Patient: Total time spent is greater than 50% in coordination of care (as documented) at patient's floor/unit and/or counseling patient:
[2019-05-31] MEDS ORDERED: GLUCAGON FOR INJ 1 MG VIAL SQ PRN (17:10)
[2019-05-31] MEDS ORDERED: CARBOHYDRATES FOR HYPOGLYCEMIA PO PRN (17:10)
[2019-05-31] MEDS ORDERED: GLUCOSE 40% GEL 15 GM TUBE PO PRN (17:10)
[2019-05-31] MEDS ORDERED: GLUCOSE 10 TABS/TUBE PO PRN (17:10)
[2019-05-31] MEDS ORDERED: DEXTROSE 50% 50 ML SYRINGE IV PRN (17:10)
[2019-05-31] MEDS: INSULIN ASPART 100 UNITS/ML 3 ML PEN SC SCH ×2 (18:12→21:27)
[2019-05-31] MEDS: ROSUVASTATIN CALCIUM 20 MG TAB PO SCH (20:55)
[2019-05-31] MEDS: METOPROLOL SUCC 50MG EXT REL TAB PO SCH (20:56)
[2019-06-01] MEDS: HYDROCODONE/ACETAMOPHEN 5/325MG TAB PO PRN ×2 (00:48→08:01)
[2019-06-01] MEDS: TRAMADOL HCL 50 MG TABLET PO PRN (02:12)
[2019-06-01] MEDS ORDERED: Nursing to Pharmacy Communication ONE (04:52)
[2019-06-01] MEDS ORDERED: INSULIN ASPART 100 UNITS/ML 3 ML PEN SC SCH (06:00)
[2019-06-01 06:41] VITALS: TEMP 98.2; O2SAT 94
[2019-06-01] MEDS ORDERED: PROPOFOL IV EMULSION 10 MG/ML 100 ML VIAL IV ONE (06:49)
[2019-06-01] MEDS: PANTOprazole 40 MG TAB PO SCH (07:54)
[2019-06-01] MEDS: PROPRANOLOL HCL LA 80 MG CAPCR PO SCH (07:54)
[2019-06-01] MEDS: LOSARTAN POTASSIUM 50 MG TAB PO SCH (07:54)
[2019-06-01] MEDS: VENLAFAXINE HCL XR 75 MG CAPXR PO SCH (07:54)
[2019-06-01 07:57] VITALS: BP 114/77; PULSE 69
[2019-06-01] MEDS: PREGABALIN 150 MG CAP PO SCH (08:01)
[2019-06-01] MEDS ORDERED: OXYCODONE/ACETAMINOPHEN 5mg/325mg TAB PO PRN (10:49)
[2019-06-01] MEDS ORDERED: ASPIRIN 81 MG ECTAB PO STA (10:50)
--- NOTE | 2019-06-01 11:09 | Discharge Summary ---
Date of Service June 01, 2019 Admission HPI Per Admitting Provider 64 y/o F c/o chest pain. Pt states she was at work today around 1145a and had sudden onset of L sided chest pain radiating into her L UE. She states it felt similar to the pain she had about 3 years ago when dx with CAD and had a stent placed. She came to the ED for evaluation. She states she was nauseated without emesis with this pain. She states that she worked a full day yesterday. She felt a bit fatigued and went to bed shortly after getting home. She slept all night without issue. Pt denies fever, SOB, abd pain, v/c/d, LE pain or swelling. Pt has been given nitro x3 and aspirin x4 with minimal relief of sx. She states chest pain is slightly improved, but still present and quite sharp. Pt has hx of hiatal hernia and Schatzi's ring. She states this does not feel similar to pain she has had with those issues as that is more sternal. 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 Santos, who states that this was the same presentation as pt had 3 years prior, including neg trop and EKG. He recommended to treat as unstable angina with heparin drip. Principal Diagnosis Cervical radiculopathy, HNP Discharge Exam Constitutional WD/WN, vitals as above Eyes + anicteric sclerae Neck trachea midline, no thyromegaly Respiratory normal respiratory effort, lungs clear to auscultation Cardiovascular RRR, no murmur, no edema Musculoskeletal Extremities: extremities normal to inspection; no cyanosis and no clubbing Skin no rashes, warm and dry Neurologic awake Psychiatric A+Ox3, euthymic affect Discharge Data Allergies Allergy/AdvReac Type Severity Reaction Status Date / Time No Known Allergies Allergy Verified 05/29/19 13:58 Consultations 05/29/19 14:12 ED Decision to Admit Stat 05/29/19 16:30 Consult Cardiology Routine 05/31/19 11:03 Consult Orthopedic Surgery Routine Procedures Performed Operation Date: 05/30/19 09:45 Actual Procedures p Cath, Left with Cors and Vent - Pillo Santos MD s Cineradiography w/Routine Exam - Pillo Santos MD Operation Date: 06/01/19 07:45 <No data on this case meets the specified criteria> Ordered Studies 05/30/19 09:47 CL Cath Imgs for PACS use only Routine 05/30/19 19:05 MR cervical spine wo con Routine 06/01/19 07:45 FL cervical 2-3V Routine FL fluoroscopy <1hr Routine CXR ECHO Hospital Course (1) Chest pain, precordial: Presented with left sided CP radiating to left axilla, left neck, and down left triceps similar to last presentation with ACS Had persistent pain throughout the night despite heparin gtt, nitroglycerin, aspirin Trop neg x3 EKG neg x2 CXR neg for acute ECHO with preserved EF and no wall motion abnormalities Given high suspicion for unstable angina, she was taken to the cardiac slab stripper on 05/30--> mid LAD stent with minimal in-stent thrombosis and had stable disease from previous: - 70-80% ostial diagonal disease - 60% ostial circumflex. - Widely patent mid LAD stent Normal intracardiac filling pressure Cardiology said her chest pain was non-cardiac -Given radicular-like symptoms, development of paresthesias in left hand, suspected and then confirmed cervical radiculopathy as below -continue pain control (2) Cervical radiculopathy: Presented as above, suspected left C7-T1 HNP, radiculopathy based on symptoms, weakness in interosseous dorsi, and decreased sensation left hand and medial forearm MRI C-spine shows: C2-C3: No significant central canal or neural foraminal narrowing. C3-C4: No significant central canal narrowing. Severe right-sided neural foraminal narrowing. No significant left-sided neural foraminal narrowing. C4-C5: No significant central canal narrowing. Mild bilateral neural foraminal narrowing. C5-C6: No significant central canal or neural foraminal narrowing. C6-C7: Small broad-based posterior disc bulge without significant central canal narrowing. There is moderate bilateral neural foraminal narrowing. C7-T1: Moderate sized left paracentral focal disc protrusion measuring 5 mm which abuts and slightly deforms the left anterior cord. This likely compresses the exiting left nerve root at this level. No significant right-sided neural foraminal narrowing. 1. Moderate-sized left paracentral focal disc protrusion at C7-T1 which abuts and slightly deforms the left anterior cord. This likely compresses the exiting left nerve root at this level. 2. Additional degenerative changes as described above. Discussed results with pt--> consulted Ortho Spine--> pt agreeable to ACDF but has been denied by insurance--> will try to get approval from insurance as an outpt -did not have adequate pain control with hydrocodone--> switch to Percocet prn for discharge -no myelopathic signs at this time -medically optimized from a cardiac standpoint for surgery -She will f/u with Ortho SPine as outpt next week to plan for outpt surgery (3) CAD (coronary artery disease): With ETHEL placed LAD 2015 Cardiac cath here as above, stable from previous -continue ASA 81mg daily -continue statin, metoprolol, losartan (4) DM type 2 (diabetes mellitus, type 2): A1c 7.3% -holding home Xigduo and liraglutide but can restart upon discharge (5) Diabetic peripheral neuropathy: continue home pregabalin (6) Hyperlipidemia: continue statin (7) Hypertension: BPs controlled -continue home metoprolol, propranolol, losartan (8) Hot flashes: -continue estradiol vaginal cream, Effexor (9) GERD (gastroesophageal reflux disease): continue PPI no acute symptoms (10) Anemia: Mild, hgb 11.0 down from 12.5 one month ago. MCV high at 98 B12, folate normal -follow as outpt (11) DVT prophylaxis: compression stockings from home are in place Dispo-stable for discharge to home Total Time Total Time Spent Total Time Spent (In Minutes): >30 min Total Time Includes: Examination of the Patient, Discharge Planning, Medication Reconciliation and Communication With Other Providers (Dr. Garzon) Discharge Plan Discharge Items Patient Disposition: Home - Self-Care Reason For Visit: CHEST PAIN Discharge Diagnosis: Cervical radiculopathy Condition on Discharge: Fair Activity: As commented below Lifting: None Bathing: No limitations Exercise/Sports: As tolerated Exercise Comment: Remain out of work until cleared by Orthopedic Surgery Driving/Machine Use: No driving while taking opioids Weightbearing: Full weightbearing Non-emergency contact: Primary Care Provider and Surgeon Call non-emergency contact if: you have any medication questions, your symptoms worsen, your pain is not controlled, your pain is worsening, your pain is unusual for you and your pain is concerning for you Follow-up/Referrals: Pillo Solis MD [Primary Care Provider] - 06/08/19 2:00 pm (Please, follow up at Dr. Solis's office with his associate, Dr. Randall, on TuesdayJune 08 at 2:00 pm. *If you need to change this appointment, call the office at [phone].) Pillo Santos MD [Physician] - 06/12/19 10:00 am (Please, follow up at [facility] Office with Dr. Santos on TuesdayJune 12 at 10:00 am. *The office is located in [address] of [facility]. This is the big building located next to this hospital. If you n eed to change this appointment, call the office at [phone].) Geovanni Garzon DO [Surgeon] - (Dr. Garzon's office will call you with your appointment date and time. ) Diet: Carb Consistent or DM2 and Heart Healthy Addtl Attending Provider Instructions: Please take the Percocet 2 tabs every 4-6 hours as needed for pain. You will follow up with Dr. Garzon from Orthopedic Spine Surgery and he will arrange for your cervical spine surgery as an outpatient. Pending Studies at Discharge: No Stand-Alone Forms: [facility], Opioid Pain Management Medications and DC Order Prescriptions: New oxycodone-acetaminophen [Percocet] 5-325 mg Tablet 2 tab PO .q4-6h PRN (Reason: pain) Qty: 30 RF: 0 Continued FreeStyle Gopal 14 Day Sensor kit .ROUTE .MEDSUPPLY Qty: 2 RF: 4 pregabalin 150 mg capsule 150 mg PO BID Qty: 180 RF: 3 propranolol 80 mg capsule,extended release 24 hr 80 mg PO QAM Qty: 90 RF: 3 estradiol 0.01 % (0.1 mg/gram) cream See Patient Comments PV .COMPLEX RF: 0 venlafaxine 75 mg capsule,extended release 24hr 75 mg PO QAM RF: 0 metoprolol succinate 50 mg tablet extended release 24 hr 50 mg PO QPM RF: 0 liraglutide 0.6 mg/0.1 mL (18 mg/3 mL) pen injector 1.8 mg subcut QAM RF: 0 dapagliflozin-metformin 5-1,000 mg tablet, IR - ER, biphasic 24hr 2 tabs PO QAM RF: 0 esomeprazole magnesium 40 mg capsule,delayed release(DR/EC) 40 mg PO HS RF: 0 losartan 100 mg tablet 100 mg PO QAM RF: 0 rosuvastatin 40 mg tablet 40 mg PO QPM RF: 0 tramadol 50 mg tablet 50 mg PO Q6H PRN (Reason: pain) Qty: 20 RF: 0 aspirin [Aspirin Low Dose] 81 mg Tablet,Delayed Release (Dr/Ec) 81 mg PO DAILY RF: 0 Discontinued omeprazole 20 mg Tablet,Delayed Release (Dr/Ec) 20 mg PO QAM RF: 0 Discharge Orders: Discharge Order (Routine); Ordered 06/01/19 Ordered By: Minnie Fink/Other Patient Handouts: Oxycodone Hydrochloride Acetaminophen Oral tablet Admission Data Admit Date/Time: 05/31/19 13:29 Attending Provider: Minnie Guerrero Admit Provider: Falguni Roy Primary Care Provider: Pillo Solis Other Providers: Falguni Roy ; Pillo Santos ; Geovanni Garzon
== END 2019-06-01 11:49 | disposition home or self-care (01) | DRG 552 ==
LOC: 2S 12:35 → ED 12:35 → SUATTDRO 14:19 → 2S 15:21 → 3E 05-31 13:31

== ENCOUNTER 2019-06-07 06:11 | Observation (INO) ==
--- NOTE | 2019-06-06 08:38 | Anesthesiology Consultation ---
Date of Service June 06, 2019 Assessment & Plan (1) Encounter for pre-operative examination: Chart Review Chart Review: Acceptable Risk for Surgery and Patient NOT seen in Pre Admission Testing Consults Requested none History Surgery Operation Date: 06/07/19 07:45 Proposed Procedures p C7-T1 Anterior Cervical Discectomy and Fusion, Possible C6-C7 - Geovanni Garzon DO Allergies Allergy/AdvReac Type Severity Reaction Status Date / Time No Known Allergies Allergy Verified 06/06/19 08:37 Medications Home Medications Medication Instructions Recorded Confirmed Last Taken dapagliflozin-metformin 2 tabs PO QAM 09/01/18 06/05/19 06/05/19 liraglutide 1.8 mg SUBCUT QAM 09/01/18 06/05/19 06/05/19 metoprolol succinate 50 mg PO QPM 09/01/18 06/05/19 06/04/19 venlafaxine 75 mg PO QAM 09/01/18 06/05/19 05/08/19 estradiol 0.01% (0.1 mg/gram) See Rx Instructions PV .COMPLEX 03/06/19 06/05/19 05/08/19 vaginal cream pregabalin 150 mg capsule 150 mg PO BID #180 cap 03/26/19 06/05/19 06/05/19 propranolol ER 80 mg capsule,24 80 mg PO QAM #90 cap 05/03/19 06/05/19 06/05/19 hr,extended release esomeprazole magnesium 40 mg PO HS 05/07/19 06/05/19 06/04/19 losartan 100 mg PO QAM 05/07/19 06/05/19 06/05/19 rosuvastatin 40 mg PO QPM 05/07/19 06/05/19 06/04/19 aspirin [Aspirin Low Dose] 81 mg PO QAM 05/30/19 06/05/19 06/05/19 oxycodone-acetaminophen [Percocet] 2 tab PO .q4-6h PRN #30 tab 06/01/19 06/05/19 06/05/19 methylprednisolone 4 mg PO UD 06/05/19 06/05/19 06/05/19 zolpidem 10 mg PO HS 06/05/19 06/05/19 06/04/19 Past Medical History Medical History Herniation of cervical intervertebral disc with radiculopathy Anemia GERD (gastroesophageal reflux disease) Cervical radiculopathy Hot flashes DM type 2 (diabetes mellitus, type 2) History of coronary artery disease (Acute) Hyperglobulinemia (Acute) Lung nodule (Acute) Mild cervical dysplasia (Acute) Osteoarthritis of thoracic spine (Acute) Renal insufficiency (Acute) Dysphagia (Acute) Presence of drug coated stent in LAD coronary artery (Acute) IMPLANTED 3 YEARS AGO AT [facility] (DR. ELLIS) Postmenopausal atrophic vaginitis (Acute) Fibrocystic breast disease (Acute) Diabetic peripheral neuropathy (Acute) Depression DJD (degenerative joint disease) (Acute) CAD (coronary artery disease) (Acute) Breast calcification, left (Acute) Anterior wall myocardial infarction (Acute) 3 YEARS AGO Hyperlipidemia (Chronic) Hypertension (Chronic) ACS (acute coronary syndrome) Cervical radiculopathy Chronic back pain follow with dr hernandez at pain management 2018 Diabetes mellitus, type 2 Esophageal stricture Gastritis Hiatal hernia History of solitary pulmonary nodule NO LONGER SHOWS UP ON XRAY Migraine Schatzki's ring HAS EGD WITH DILATION Past Surgical History Surgical History H/O: section (Resolved) x2 S/P hardware removal RT ANKLE History of bilateral tubal ligation History of colonoscopy History of esophagogastroduodenoscopy (EGD) WITH DILATION History of laparoscopy fertility reason History of open reduction and internal fixation (ORIF) procedure right ankle History of tonsillectomy and adenoidectomy Social History Smoking Status: Never smoker Hx Alcohol Use: Yes Alcohol type: beer alcohol intake frequency: a few times a week Hx Substance Use: No substance use type: does not use Testing Laboratory Results Laboratory Tests 05/31/19 05/31/19 05:28 05:28 WBC 4.77 L Hgb 11.5 L Hct 34.8 L Plt Count 177 Sodium 136 Potassium 4.1 Chloride 102 Carbon Dioxide 28 BUN 21 H Creatinine 1.36 H Glucose 131 H Electrocardiogram Date: 05/31/19 Findings: + NSR @ (75) Normal sinus rhythm Low voltage QRS Borderline ECG When compared with ECG of 30-MAY-2019 06:44, No significant change was found Confirmed by Torres Carey ([id number]) on 05/31/2019 1:33:55 PM Chest X-Ray Date: 05/29/19 XR chest 1V portable CLINICAL HISTORY: Chest Pain pain COMPARISON STUDY: 09/01/2018 FINDINGS: The bones soft tissues and hemidiaphragms are normal. The cardiomediastinal silhouette is normal. The lungs are clear. The pulmonary vasculature is normal. IMPRESSION: Negative chest. Echocardiogram Date: 05/30/19 Normal LV size, mild LVH. LVEF 55-60%. No RWMA Normal RV size and function. Mild MR. Cardiac Catheterization Date: 05/30/19 Dr. Ellis. Cardiology [facility] Summary: 1. Stable severe coronary artery disease - 70-80% ostial diagonal disease - 60% ostial circumflex. - Widely patent mid LAD stent 2. Normal intracardiac filling pressure Recommendations: Coronary artery disease not significantly changed from 05/2016. No critical disease to explain patient's rest pain. Continue antianginal therapy, ASCVD risk factor modification. From a cardiac standpoint OK with discharge later today after TR band removed.
[~2019-06-07 06:11] MED LIST changes: +ACETAMINOPHEN 500 MG TAB PO SCH; -ASPI-320 PO; -ATOR-26 PO; -BRL90 PO; +CEFAZOLIN 1000MG 1,000 MG/7.5 ML SYR IV SCH; +CeleBREX 200 MG CAP PO SCH; -DAPA1TAB5 PO; +GABAPENTIN 600 MG DOSE PO SCH; -LIRA18IN SQ; -LOSA100T65 PO; +LR 15ML/HR IV SCH; -METO50TA8 PO; -MULT-506 PO; -PREG1CAP70 PO; -PROP80CA PO
[2019-06-07] MEDS ORDERED: fentaNYL citrate 100 MCG/2 ML VIAL ONE ×6 (06:38→09:39)
[2019-06-07] MEDS ORDERED: MIDAZOLAM HCL 1 MG/ML 2ML VIAL ONE (06:38)
[2019-06-07] MEDS ORDERED: HYDROmorphone INJ 2 MG/ML SYR/VIAL ONE ×2 (06:38→08:26)
[2019-06-07] MEDS ORDERED: PROPOFOL IV EMULSION 10 MG/ML 100 ML VIAL IV ONE (06:55)
[2019-06-07] MEDS ORDERED: BACITRACIN INJ 50,000 UNIT VIAL ONE (07:20)
--- NOTE | 2019-06-07 07:40 | History & Physical Bridge Note ---
Date of Service June 07, 2019 History & Physical Bridge Note I have examined the patient, reviewed the History & Physical and in the interval since the performance of the History & Physical I have noted the following changes of clinical significance: no changes noted
[2019-06-07] MEDS ORDERED: ATROPINE SULFATE 0.1 MG/ML 10ML SYR IV PRN (07:41)
[2019-06-07] MEDS ORDERED: PROMETHAZINE HCL 6.25 MG in SODIUM CHLORIDE 0.9% 50 ML IV PRN (07:41)
[2019-06-07] MEDS ORDERED: LABETALOL HCL IV 5 MG/ML 20ML IV PRN (07:41)
[2019-06-07] MEDS ORDERED: ONDANSETRON INJ 2 MG/ML 2 ML VIAL IV PRN ×2 (07:41→11:26)
--- NOTE | 2019-06-07 07:41 | History & Physical Report ---
Date of Service June 07, 2019 Assessment & Plan (1) Herniation of cervical intervertebral disc with radiculopathy: Anterior cervical discectomy and fusion at C7-T1 possible C6-C7 Present on Admission?: Yes History of Present Illness Chief Complaint: Neck and arm pain Primary Care Provider: Reinier Solis MD This is a 64-year-old female who presents with severe neck and arm symptoms. After failing a course of nonoperative care and ongoing neuro deficits is here for surgical intervention. Allergies Allergy/AdvReac Type Severity Reaction Status Date / Time No Known Allergies Allergy Verified 06/07/19 06:36 Home Medications Home Medications Medication Instructions Recorded Confirmed Type dapagliflozin-metformin 2 tabs PO QAM 09/01/18 06/07/19 History liraglutide 1.8 mg SUBCUT QAM 09/01/18 06/07/19 History metoprolol succinate 50 mg PO QPM 09/01/18 06/07/19 History venlafaxine 75 mg PO QAM 09/01/18 06/07/19 History estradiol 0.01% (0.1 mg/gram) 0.01 % PV UD PRN 03/06/19 06/07/19 History vaginal cream pregabalin 150 mg capsule 150 mg PO BID #180 cap 03/26/19 06/07/19 Rx propranolol ER 80 mg capsule,24 80 mg PO QAM #90 cap 05/03/19 06/07/19 Rx hr,extended release esomeprazole magnesium 40 mg PO HS 05/07/19 06/07/19 History losartan 100 mg PO QAM 05/07/19 06/07/19 History rosuvastatin 40 mg PO QPM 05/07/19 06/07/19 History aspirin [Aspirin Low Dose] 81 mg PO QAM 05/30/19 06/07/19 History oxycodone-acetaminophen [Percocet] 2 tab PO .q4-6h PRN #30 tab 06/01/19 06/07/19 Rx methylprednisolone 4 mg PO UD 06/05/19 06/07/19 History zolpidem 10 mg PO HS PRN 06/05/19 06/07/19 History Past Med/Surg History Medical History Herniation of cervical intervertebral disc with radiculopathy Anemia GERD (gastroesophageal reflux disease) Cervical radiculopathy Hot flashes DM type 2 (diabetes mellitus, type 2) History of coronary artery disease (Acute) Hyperglobulinemia (Acute) Lung nodule (Acute) Mild cervical dysplasia (Acute) Osteoarthritis of thoracic spine (Acute) Renal insufficiency (Acute) Dysphagia (Acute) Presence of drug coated stent in LAD coronary artery (Acute) IMPLANTED 3 YEARS AGO AT [facility] (DR. ELLIS) Postmenopausal atrophic vaginitis (Acute) Fibrocystic breast disease (Acute) Diabetic peripheral neuropathy (Acute) Depression DJD (degenerative joint disease) (Acute) CAD (coronary artery disease) (Acute) Breast calcification, left (Acute) Anterior wall myocardial infarction (Acute) 3 YEARS AGO Hyperlipidemia (Chronic) Hypertension (Chronic) ACS (acute coronary syndrome) Cervical radiculopathy Chronic back pain follow with dr hernandez at pain management 2018 Diabetes mellitus, type 2 Esophageal stricture Gastritis Hiatal hernia History of solitary pulmonary nodule NO LONGER SHOWS UP ON XRAY Migraine Schatzki's ring HAS EGD WITH DILATION Surgical History H/O: section (Resolved) x2 History of cardiac cath 05/2019 (NO STENT AT [facility]) S/P hardware removal RT ANKLE History of bilateral tubal ligation History of colonoscopy History of esophagogastroduodenoscopy (EGD) WITH DILATION History of laparoscopy fertility reason History of open reduction and internal fixation (ORIF) procedure right ankle History of tonsillectomy and adenoidectomy Social History Preferred Language: Uzbek Communication Ability: Effective Junior Network Engineer Required: No Beliefs That Will Affect Care: None marital status: Current Living Situation: Spouse and Family current occupational status: employed Other Information That Helps Us Care for You: No Feels Safe at Home: Yes Safety Concerns: Feels Safe At This Time Smoking Status: Never smoker Do You Dip or Chew Tobacco: No ; Second Hand Exposure: No ; Tobacco Cessation Education Requested by Patient: No Hx Alcohol Use: No Hx Substance Use: No Physical Exam Physical Exam: Patient is alert and oriented. She has no motor deficits sensory deficit to the left upper extremity. Results & Data Vital Signs (Past 12 Hours) Vital Signs Temp Pulse Resp BP Pulse Ox 06/07/19 06:49 36.8 C 70 20 131/78 99
[2019-06-07] MEDS ORDERED: PROPOFOL IV EMULSION 10 MG/ML 20 ML VIAL IV ONE (08:28)
[2019-06-07] MEDS ORDERED: ROCURONIUM BROMIDE 10 MG/ML 5 ML VIAL ONE (08:28)
[2019-06-07] MEDS ORDERED: SUCCINYLCHOLINE CHLORIDE 20 MG/ML 10 ML VIAL ONE (08:28)
[2019-06-07] MEDS ORDERED: ONDANSETRON INJ 2 MG/ML 2 ML VIAL ONE (08:28)
[2019-06-07] MEDS ORDERED: LIDOCAINE HCL 2% 2 ML VIAL/AMP(20MG/ML) INFIL ONE (08:28)
[2019-06-07] MEDS ORDERED: NEOSTIGMINE METHYLSULFATE 1 MG/ML 10ML VIAL ONE (08:28)
[2019-06-07] MEDS ORDERED: DEXAMETHASONE SOD INJ 4 MG/ML VIAL ONE (08:28)
[2019-06-07] MEDS ORDERED: ePHEDrine sulfate 50 MG/ML SYR ONE (08:28)
[2019-06-07] MEDS ORDERED: GLYCOPYRROLATE 0.2 MG/ML VIAL ONE (08:28)
[2019-06-07] MEDS ORDERED: PHENYLEPHRINE 100MCG/ML 5ML SYR ONE (08:28)
[2019-06-07] MEDS ORDERED: METOCLOPRAMIDE HCL INJ 5 MG/ML 2 ML VIAL ONE (08:48)
[2019-06-07] MEDS ORDERED: raNITIdine HCl 25 MG/ML VIAL IV ONE (08:48)
[2019-06-07] MEDS ORDERED: ePHEDrine sulfate 50 MG/ML AMP ONE (08:49)
[2019-06-07] MEDS ORDERED: FLOSEAL HEMOSTATIC MATRIX 10ML TOP ONE (09:30)
--- NOTE | 2019-06-07 09:44 | Operative Report ---
Post Operative Report Pre & Post Diagnosis Operation Date: 06/07/19 07:45 Pre-Op Diagnosis: Cervical herniated nucleus pulposis with radiculopathy Post-Op Diagnosis: Same I identified the patient and participated in the time-out.: Yes Procedure Operation Date: 06/07/19 07:45 Actual Procedures #1 anterior cervical discectomy with bilateral foraminotomies C6-7 C7-T1. #2 anterior cervical arthrodesis C6-7 C7-T1. #3 placement of Spira 8 mm cage at C6-7 and 9 mm cage at C7-T1 filled with DBM. #4 application of boswell plate and screws across C6-7 C7-T1. Surgeon Geovanni Garzon, DO Lip And Gate Builder None Estimated Blood Loss 15 Findings Consistent with Post-Op Diagnosis Specimens None Indications This is a 64-year-old female presents with worsening arm pain and neurodeficit since subsequently elected to go the above-mentioned procedure. Description of Procedure Patient was met with identified and informed consent obtained. Patient was then taken to the operative suite underwent intubation placed in supine position Missael table the head [employer] head former. All bony prominences well-padded eyes inspected to ensure no external pressure placed upon the peer at this point the anterior cervical spine was prepped and draped in a normal sterile fashion. With the assistance of fluoroscopy identified the C7 vertebral body a transverse incision was placed on the right anterior aspect of the cervical spine overlying this region. Sharp dissection with the assistance of bipolar electrocautery was performed down to and exposing the anterior cervical spine from C6-T1. And then performed a complete discectomy of C6-7 out to the uncovertebral joints bilaterally. Baudette distracting pins were utilized to assist in visualization. I removed all posterior annular fibers longitudinal ligament bilateral foraminotomies performed. Endplates were then burred to subcortical bleeding bone and an 8 mm Spira cage filled with DBM tapped in position. Then proceeded to C7-T1. Again complete discectomy performed removal of all posterior annular fibers longitudinal ligament massive loss of disc material occupying the left neuroforamen were also addressed and removed. The endplates were then burred to subcortical bone and a 9 mm Spira cage filled with DBM tapped in position. Distraction apparatus was removed all anterior ossified's burred with smooth cortical surface and a boswell plate and screws applied with the assistance of fluoroscopy. The incision was then copiously irrigated explored to ensure no damage to surrounding structures remaining bleeding. A 10 round OTIS drain inserted. The incision was then closed with 2 Vicryl in the fashion of 4 Monocryl for final skin closure. Steri-Strip sterile dressings placed. Patient will continue PACU stable disc. Please note spinal cord monitoring was utilized that the procedure no changes noted. I attest to the content of the Intraoperative Record and any orders documented therein. Any exceptions are noted below.
[2019-06-07] MEDS: HYDROmorphone INJ 1 MG/ML SYRINGE IV PRN ×6 (10:09→10:34)
--- NOTE | 2019-06-07 10:19 | Fluoroscopy Report ---
Cervical SPINE, INTRAOPERATIVE FLUOROSCOPY HISTORY: C7-T1 ACDF. FLUOROSCOPY TIME: 16 seconds. FINDINGS: Intraoperative fluoroscopy was provided for the cervical spine. There were 3 fluoroscopic s pot images obtained. Anterior cervical discectomy and fusion from C6 through T1. The hardware appears intact. Endotracheal tube and surgical drains are partially visualized. IMPRESSION: Fluoroscopy provided for a C6-T1 ACDF.. Electronically signed by: Solomon Luna M.D. 06/07/2019 10:18 AM
--- NOTE | 2019-06-07 10:57 | Anesthesiology Progress Note ---
Date of Service June 07, 2019 Anesthesia Post Procedure Vital Signs Vital Signs: Temp Pulse Pulse Resp BP Pulse Ox 06/07/19 10:50 36.9 C 70 17 139/80 100 06/07/19 10:40 70 16 132/72 98 06/07/19 10:30 72 16 129/70 96 06/07/19 10:20 72 16 130/72 100 06/07/19 10:10 74 15 139/72 100 06/07/19 10:00 81 14 137/80 100 06/07/19 09:53 36.2 C L 82 14 144/74 H 100 06/07/19 06:49 36.8 C 70 20 131/78 99 Pain Intensity Bilateral Posterior Neck: Pain Intensity: 2 Transfer of Care Handoff Completed per policy Notes Mental Status: alert / awake / arousable Patient Amnestic to Procedure: Yes Nausea / Vomiting: adequately controlled Pain: adequately controlled Airway Patency, RR, SpO2: stable & adequate BP & HR: stable & adequate Hydration State: stable & adequate Anesthetic Complications: no major complications apparent
[2019-06-07] MEDS ORDERED: TRAMADOL HCL 50 MG TABLET PO PRN (11:26)
[2019-06-07] MEDS ORDERED: METOCLOPRAMIDE HCL INJ 5 MG/ML 2 ML VIAL IV PRN (11:26)
[2019-06-07] MEDS ORDERED: RACEPINEPHRINE 2.25% NEBU SOLN 0.5 ML VIAL INH PRN (11:26)
[2019-06-07] MEDS ORDERED: PROMETHAZINE HCL 12.5 MG in SODIUM CHLORIDE 0.9% 50 ML IV PRN (11:26)
[2019-06-07] MEDS ORDERED: LORazepam 0.5 MG TAB PO PRN (11:26)
[2019-06-07] MEDS ORDERED: DO NOT ADMINISTER FLU VACCINE PRN (11:26)
[2019-06-07] MEDS ORDERED: ALUMINUM/MAGNESIUM SUSP 30 ML UDC PO PRN (11:26)
[2019-06-07] MEDS ORDERED: DO NOT ADMINISTER PNEUMOCOCCAL VACCINE PRN (11:26)
[2019-06-07] MEDS ORDERED: NALOXONE HCL 0.4 MG/1 ML VIAL/CARP IV PRN (11:26)
[2019-06-07] MEDS ORDERED: ZOLPIDEM TARTRATE 10 MG TAB PO PRN (11:26)
[2019-06-07] MEDS ORDERED: ONDANSETRON 4 MG OD TAB PO PRN (11:26)
[2019-06-07] MEDS ORDERED: HYDROmorphone INJ 0.5 MG/0.5 ML SYR IV PRN (11:26)
[2019-06-07] MEDS ORDERED: DEXAMETHASONE SOD PHOSPHATE 8 MG in SYRINGE 0 ML IV PRN (11:26)
[2019-06-07] MEDS ORDERED: MAGNESIUM HYDROXIDE SUSP 30 ML UDC PO PRN (11:26)
[2019-06-07] MEDS ORDERED: HYDROmorphone INJ 1 MG/ML SYRINGE IV PRN (11:26)
[2019-06-07] MEDS ORDERED: LORazepam 0.5 MG/1 ML VIAL IV PRN (11:26)
[2019-06-07] MEDS ORDERED: SOD PHOSPHATE/SOD BIPHOSPHATE ENEMA 132 ML BTL PR PRN (11:26)
[2019-06-07] MEDS ORDERED: FAMOTIDINE 20 MG TAB PO PRN (11:26)
[2019-06-07] MEDS ORDERED: PHARMACY GLYCEMIC MGMT CONSULT PRN (14:00)
[2019-06-07] MEDS ORDERED: CARBOHYDRATES FOR HYPOGLYCEMIA PO PRN (14:15)
[2019-06-07] MEDS ORDERED: GLUCAGON FOR INJ 1 MG VIAL IM PRN (14:15)
[2019-06-07] MEDS ORDERED: GLUCOSE 10 TABS/TUBE PO PRN (14:15)
[2019-06-07] MEDS ORDERED: GLUCOSE 40% GEL 15 GM TUBE PO PRN (14:15)
[2019-06-07] MEDS ORDERED: NovoLIN-N (NPH) PER UNIT CHARGE SQ ONE (14:15)
[2019-06-07] MEDS ORDERED: DEXTROSE 50% 50 ML SYRINGE IV PRN (14:15)
--- NOTE | 2019-06-07 14:26 | Pharmacy Report ---
Glycemic Control Consultation - Date of Service June 07, 2019 - Scope Scope: Glycemic Pharmacist consulted by Mendoza Mathur PA-C on 06/07/19 for glycemic control and to write orders per [facility] inpatient glycemic control protocol - Objective Weight: 68.039 kg Accuchecks BSG (last 24hrs): 06/07/19 06/07/19 06/07/19 06:39 09:57 12:17 POC Glucose 200 H 179 H 237 H - Recent Pertinent Medications Outpatient Anti-diabetic Regimen: * Liraglutide 1.8 mg SC qam * Dapagliflozin-metformin 5-1000 m tabs PO daily * A1c = 7.3 % (05/30/19) Risk Factors for Insulin Resistance: * Steroids: Dexamethasone 8 mg IV x 1 intraoperatively * Recent Surgery: POD #0 s/p cervical discectomy and fusion * Diet: T2DM - Assessment & Plan Assessment & Plan: ASSESSMENT: * MILE is a 64 year old female POD #0 s/p cervical discectomy and fusion * PMH is significant and includes type 2 DM, hypertension, hyperlipidemia, severe CAD, depression, GERD, and osteoarthritis * 8 mg IV dexamethasone given intraoperatively - will cover with 25 units of NPH (0.37 unit/kg) * BSG preop was 200 mg/dL, postop 237 mg/dL PLAN FOR INPATIENT GLYCEMIC CONTROL: * Holding outpatient oral diabetes medications * Basal insulin * NPH 25 units x 1 - to cover for probable dexamethasone-induced hyperglycemia * Will assess ongoing basal needs tomorrow AM * Bolus insulin * NovoLog per scale ACHS or Q6hrs while NPO * Goal Range: Low 110 mg/dL - High 140 mg/dL * Correction Factor: 25 mg/dL/unit * Nutritional / Prandial insulin per carb ratio of 1 unit per 8 grams CHO consumed * Please note that the plan above was derived based on current level of insulin resistance and hospital stress. These recommendations are appropriate for inpatient admission only. Plan of care upon discharge will need to be reassessed to avoid potential outpatient hypo/hyperglycemia. Thank you.
[2019-06-07] MEDS: INSULIN ASPART 100 UNITS/ML 3 ML PEN SC SCH ×3 (14:53→21:44)
[2019-06-07] MEDS: SODIUM CHLORIDE 0.9% 1000ML 1,000 ML IV SCH (14:53)
[2019-06-07] MEDS ORDERED: ACETAMINOPHEN 1,000 MG/100 ML VIAL IV PRN (15:00)
[2019-06-07] MEDS: CEFAZOLIN 1000MG 1,000 MG/7.5 ML SYR IV SCH (15:26)
[2019-06-07] MEDS: ACETAMINOPHEN 500 MG TAB PO PRN (17:23)
[2019-06-07] MEDS: PREGABALIN 150 MG CAP PO SCH (20:38)
[2019-06-07] MEDS ORDERED: METOPROLOL SUCC 50MG EXT REL TAB PO SCH (21:00)
[2019-06-07] MEDS ORDERED: PANTOprazole 40 MG TAB PO SCH (21:00)
[2019-06-07] MEDS ORDERED: ROSUVASTATIN CALCIUM 20 MG TAB PO SCH (21:00)
[2019-06-07] MEDS ORDERED: DOCUSATE SODIUM/SENNA 50/8.6MG TAB PO SCH (21:00)
[2019-06-07] MEDS: OXYCODONE HCL IR 5 MG TAB (IMMEDIATE RELEASE) PO PRN (21:42)
[2019-06-08] MEDS: SODIUM CHLORIDE 0.9% 1000ML 1,000 ML IV SCH (00:09)
[2019-06-08] MEDS: CEFAZOLIN 1000MG 1,000 MG/7.5 ML SYR IV SCH (00:09)
[2019-06-08] MEDS: INSULIN ASPART 100 UNITS/ML 3 ML PEN SC SCH ×3 (00:51→08:55)
[2019-06-08] MEDS: OXYCODONE HCL IR 5 MG TAB (IMMEDIATE RELEASE) PO PRN ×2 (03:34→07:57)
--- NOTE | 2019-06-08 07:54 | Anesthesiology Progress Note ---
Date of Service June 08, 2019 Anesthesia Post Procedure Vital Signs Vital Signs: Temp Pulse Pulse Pulse Resp BP Pulse Ox 06/08/19 07:34 36.7 C 66 17 139/70 98 06/08/19 07:24 66 14 95 06/08/19 06:25 36.7 C 69 16 122/73 95 06/08/19 04:25 36.7 C 68 16 134/77 96 06/08/19 02:55 73 16 97 06/08/19 02:25 36.8 C 71 16 129/72 94 06/08/19 00:25 36.9 C 74 16 145/78 H 95 06/07/19 23:49 75 16 93 06/07/19 22:25 36.9 C 72 18 140/80 94 06/07/19 20:25 36.9 C 75 18 150/78 H 97 06/07/19 20:00 75 16 96 06/07/19 18:25 37 C 82 18 128/69 96 06/07/19 16:25 36.7 C 74 18 148/79 H 97 06/07/19 15:16 77 18 91 06/07/19 14:19 36.6 C 77 17 128/70 96 06/07/19 13:25 36.8 C 75 17 136/74 95 06/07/19 12:30 74 18 131/73 97 06/07/19 11:56 36.7 C 73 17 143/75 H 98 06/07/19 11:51 89 18 94 06/07/19 11:25 36.8 C 79 17 125/70 94 06/07/19 11:12 36.9 C 76 16 134/67 99 06/07/19 11:01 36.9 C 72 14 126/77 100 06/07/19 10:50 36.9 C 70 17 139/80 100 06/07/19 10:40 70 16 132/72 98 06/07/19 10:30 72 16 129/70 96 06/07/19 10:20 72 16 130/72 100 06/07/19 10:10 74 15 139/72 100 06/07/19 10:00 81 14 137/80 100 06/07/19 09:53 36.2 C L 82 14 144/74 H 100 Pain Intensity Bilateral Posterior Neck: Pain Intensity: 4 Notes Mental Status: alert / awake / arousable and participated in evaluation Patient Amnestic to Procedure: Yes Nausea / Vomiting: adequately controlled Pain: adequately controlled Airway Patency, RR, SpO2: stable & adequate BP & HR: stable & adequate Hydration State: stable & adequate Anesthetic Complications: no major complications apparent and Pt Satisfied with anesthetic care
[2019-06-08] MEDS: PREGABALIN 150 MG CAP PO SCH (08:03)
--- NOTE | 2019-06-08 08:50 | Pharmacy Report ---
Pharmacy Glycemic Short Note 2 - Date of Service June 08, 2019 - Glycemic Short BSG Results (Last 24 hours): 06/07/19 06/07/19 06/07/19 09:57 12:17 17:17 POC Glucose 179 H 237 H 184 H 06/07/19 06/08/19 06/08/19 21:22 00:11 03:54 POC Glucose 139 H 92 93 06/08/19 08:06 POC Glucose 95 OUTPATIENT ANTIDIABETIC REGIMEN: * Liraglutide 1.8 mg SC qam * Dapagliflozin-metformin 5-1000 m tabs PO daily * A1c = 7.3 % (05/30/19) ASSESSMENT: * DH is a 64 year old female POD #1 s/p cervical discectomy and fusion * PMH is significant and includes type 2 DM, hypertension, hyperlipidemia, s evere CAD, depression, GERD, and osteoarthritis * 8 mg IV dexamethasone given intraoperatively - covered with 25 units of NPH (0.37 unit/kg) * BSG immediately postop was 237 mg/dL, BSGs since then ranging 92-184 mg/dL * Fasting BSG this morning of 95 mg/dL - will hold off on basal at this time PLAN FOR INPATIENT GLYCEMIC CONTROL: * Hold outpatient oral diabetes medications * Bolus insulin - loosen parameters * NovoLog per scale ACHS or Q6hrs while NPO * Goal Range: Low 110 mg/dL - High 140 mg/dL * Correction Factor: 35 mg/dL/unit * Nutritional / Prandial insulin per carb ratio of 1 unit per 11 grams CHO consumed PLAN FOR DISCHARGE: * Patient's A1c of 7.3% is slightly above goal of less than 7% given her age of [age] years old * Should follow-up with outpatient portal developer * Support Patient Self-Management o Healthy Lifestyle (diet, exercise, and smoking cessation) o Disease self-management (SMBG) o Prevention of complications (BP, Lipid goals, Immunizations) o Consider outpatient Diabetes Self-Management Education & Support
[2019-06-08] MEDS ORDERED: ASPIRIN 81 MG ECTAB PO SCH (09:00)
[2019-06-08] MEDS ORDERED: VENLAFAXINE HCL XR 75 MG CAPXR PO SCH (09:00)
[2019-06-08] MEDS ORDERED: LOSARTAN POTASSIUM 50 MG TAB PO SCH (09:00)
[2019-06-08] MEDS ORDERED: PROPRANOLOL HCL LA 80 MG CAPCR PO SCH (09:00)
[2019-06-08] MEDS ORDERED: POLYETHYLENE (MIRALAX) 17 GM PACK PO SCH (09:45)
--- NOTE | 2019-06-08 10:01 | Discharge Summary ---
Date of Service June 08, 2019 Admission HPI Per Admitting Provider This is a 64-year-old female who presents with severe neck and arm symptoms. After failing a course of nonoperative care and ongoing neuro deficits is here for surgical intervention. Principal Diagnosis Cervical spinal stenosis with radiculopathy and herniated nucleus pulposus Discharge Data Allergies Allergy/AdvReac Type Severity Reaction Status Date / Time No Known Allergies Allergy Verified 06/07/19 06:36 Procedures Performed Operation Date: 06/07/19 07:45 Actual Procedures p C6-C7, C7-T1 Anterior Cervical Discectomy and Fusion, with Spinal Cord Monitoring(Not Applicable) - Geovanni Garzon DO Ordered Studies 06/07/19 07:45 FL cervical 2-3V Routine FL fluoroscopy <1hr Routine Hospital Course (1) Cervical radiculopathy: Patient underwent anterior cervical discectomy and fusion tolerated as well as taken to the orthopedic floor postoperative. Postop day and when she was swallowing well no hoarseness protection strength testing pain controlled subsequently discharged home discharge orders instructions from the chart for further review. Total Time Total Time Spent Total Time Spent (In Minutes): 20 minutes Discharge Plan Discharge Items Reason For Visit: Spinal Stenosis, Cervical Region Discharge Diagnosis: Cervical disc herniation with radiculopathy Activity: Per Instructions section Non-emergency contact: Primary Care Provider Call non-emergency contact if: you have any medication questions Follow-up/Referrals: Pillo Solis MD [Primary Care Provider] - Diet: Regular Addtl Attending Provider Instructions: ACTIVITY RECOMMENDATIONS: SELF CARE INSTRUCTIONS AFTER CERVICAL FUSIONS 1. No smoking. Smoking drastically decreases the chance of a solid fusion. 2. No bending, lifting more than 5 pounds, or twisting (roll like a log when turning in bed). 3. You may shower 3 days after surgery. Thoroughly dry wound. Do not soak in the tub. 4. Cervical collar: Must be worn at all times including sleeping. You may remove the brace only to bath, eat and if you are sitting in a recliner. 5. Please walk as much as you can for exercise. Gradually increase the distance that you walk as your endurance increases. SPECIAL CARE INSTRUCTIONS: VERY IMPORTANT TO READ AND REVIEW A. Do not take any anti-inflammatory medications (i.e. Indocin, Advil, Aspirin, Naprosyn, Aleve, Motrin, etc.) as these may inhibit the chance of a solid fusion. Tylenol is okay to take. B. Your surgical incision has been closed with a cosmetic suture under the skin that will dissolve in about 6 weeks. In 14 days, you can use a pair of clean scissors and cut the suture that is left outside of the skin at the ends of your incision. C. Complications are uncommon, but please contact us if you have any signs or symptoms of: 1. wound infection (fever higher than 102.5 degrees F, redness, separation of wound, drainage, or increasing pain from the incision) 2. blood clots in legs (pain, swelling, redness and warmth in legs) 3. urinary tract infection (fever higher than 102.5 degrees, burning upon urination or increased frequency of urination) 4. nerve problems (inability to walk on your toes or heels, numbness, loss of bowel or bladder control) 5. any other symptoms that concern you. D. Please call the office at if you have any concerns or questions about your operation or recovery. MANAGING PAIN AFTER SPINAL SURGERY 1. Narcotic medication is intended for short-term use and will be provided for surgical pain. Surgical pain usually lasts for a period of 4-6 weeks. Narcotic medication includes Percocet, Vicodin, Darvocet, Tylenol #3 or Lortab. 2. Longer-term pain is more appropriately treated with non-narcotic medication such as Tylenol ES. 3. Muscle spasm is not appropriately treated with narcotics. Muscle relaxers such as Soma, Flexeril or Skelaxin can be used along with Tylenol ES. 4. Remember that we all live with some "aches and pains". This is not unusual or uncommon after an injury or as we get older. 5. We will provide appropriate medication within the normal guidelines of their prescribed use. We will also be very cautious and aware of potential abuse and extended duration of patients' medication needs. 6. Please allow 2-3 days to process refills. Prescriptions will not be mailed but must be picked up at the office. FOLLOW UP VISIT: Keep your scheduled follow-up appointment. Any questions, please call the office at . Pending Studies at Discharge: No Stand-Alone Forms: [facility], Opioid Pain Management, Smoking Cessation Medications and DC Order Prescriptions: New oxycodone 5 mg tablet 5 mg PO Q6H PRN (Reason: pain, severe) Qty: 14 RF: 0 Continued pregabalin 150 mg capsule 150 mg PO BID Qty: 180 RF: 3 propranolol 80 mg capsule,extended release 24 hr 80 mg PO QAM Qty: 90 RF: 3 estradiol 0.01 % (0.1 mg/gram) cream 0.01 % PV UD PRN (Reason: NEEDED) RF: 0 venlafaxine 75 mg capsule,extended release 24hr 75 mg PO QAM RF: 0 metoprolol succinate 50 mg tablet extended release 24 hr 50 mg PO QPM RF: 0 liraglutide 0.6 mg/0.1 mL (18 mg/3 mL) pen injector 1.8 mg subcut QAM RF: 0 dapagliflozin-metformin 5-1,000 mg tablet, IR - ER, biphasic 24hr 2 tabs PO QAM RF: 0 esomeprazole magnesium 40 mg capsule,delayed release(DR/EC) 40 mg PO HS RF: 0 losartan 100 mg tablet 100 mg PO QAM RF: 0 rosuvastatin 40 mg tablet 40 mg PO QPM RF: 0 zolpidem 10 mg tablet 10 mg PO HS PRN (Reason: Sleep) RF: 0 methylprednisolone 4 mg tablets,dose pack 4 mg PO UD RF: 0 aspirin [Aspirin Low Dose] 81 mg Tablet,Delayed Release (Dr/Ec) 81 mg PO QAM RF: 0 oxycodone-acetaminophen [Percocet] 5-325 mg Tablet 2 tab PO .q4-6h PRN (Reason: pain) Qty: 30 RF: 0 Admission Data Admit Date/Time: 06/07/19 09:48 Attending Provider: Geovanni Garzon Admit Provider: Geovanni Garzon Primary Care Provider: Pillo Solis Other Interventions: Discharge Summary Assessment (RN) Last Done: 06/08/19 09:29
[2019-06-08] MEDS: ACETAMINOPHEN 500 MG TAB PO PRN (11:42)
[2019-06-09] MEDS ORDERED: BISACODYL 10 MG SUPP PR PRN (09:45)
== END 2019-06-08 11:45 | disposition home or self-care (01) ==
LOC: 3E 06:11 → ASU 06:11